=== PATIENT | female | born 1980 | race Caucasian/White ===

== ENCOUNTER 2018-02-18 20:13 | Emergency (ER) | payer OTHER ==
[2018-02-18] MEDS: ONDANSETRON 4MG/2ML VIAL (J2405) IV (20:45)
[2018-02-18] MEDS: KETOROLAC 30 MG/ML VIAL (J1885) IV (20:45)
[2018-02-18] MEDS: NS 1,000 ML IV (20:45)
[2018-02-18 20:58] LABS: BASO % 0.5 % (0.0-1.0); EOS # 0.2 10^3/uL (0.0-0.50); EOS % 2.8 % (0.0-3.0); HEMATOCRIT 34.8 % (36.0-47.0); HEMOGLOBIN 11.9 g/dl (12.0-15.5); IMMATURE GRANULOCYTE % 0.3 % (0-3.0); LYMPH # 2.1 10^3/uL (1.5-4.5); LYMPH % 32.1 % (24.0-44.0); MEAN CORPUSCULAR HEMOGLOBIN 28.4 pg (27.0-33.0); MEAN CORPUSCULAR HGB CONC 34.2 g/dl (32.0-36.5); MEAN CORPUSCULAR VOLUME 83.1 fl (80.0-96.0); MONO # 0.4 10^3/uL (0.0-0.8); MONO % 5.6 % (0.0-5.0); NEUTROPHILS # 3.8 10^3/uL (1.8-7.7); NEUTROPHILS % 58.7 % (36.0-66.0); PLATELET COUNT, AUTOMATED 283 10^3/uL (150-450); RED BLOOD COUNT 4.19 10^6/uL (4.00-5.40); RED CELL DISTRIBUTION WIDTH 13.2 % (11.5-14.5); WHITE BLOOD COUNT 6.4 10^3/uL (4.0-10.0)
[2018-02-18] MEDS: fentaNYL 100 MCG/2 ML INJECTION (J3010) IV ×2 (21:04→22:48)
[2018-02-18 21:22] LABS: ALBUMIN/GLOBULIN RATIO 1.25 (1.00-1.93); ALKALINE PHOSPHATASE 100 U/L (45-117); ALT/SGPT 28 U/L (12-78); AMYLASE 54 U/L (25-115); ANION GAP 9 MEQ/L (8-16); AST/SGOT 15 U/L (7-37); BILIRUBIN,DIRECT 0.2 MG/DL (0.0-0.2); BILIRUBIN,TOTAL 0.9 MG/DL (0.2-1.0); BLOOD UREA NITROGEN 15 MG/DL (7-18); CALCIUM LEVEL 9.3 MG/DL (8.5-10.1); CARBON DIOXIDE LEVEL 27 MEQ/L (21-32); CHLORIDE LEVEL 106 MEQ/L (98-107); CREATININE FOR GFR 1.03 MG/DL (0.55-1.30); GLOMERULAR FILTRATION RATE > 60.0 (>60); GLUCOSE, FASTING 103 MG/DL (70-100); LIPASE 100 U/L (73-393); POTASSIUM SERUM 3.7 MEQ/L (3.5-5.1); SODIUM LEVEL 142 MEQ/L (136-145); TOTAL PROTEIN 7.2 GM/DL (6.4-8.2)
[2018-02-18] MEDS: diphenhydrAMINE INJ 50MG/ML VIAL (J1200) IV (22:47)
[2018-02-18 23:03] LABS: KETONE, URINE AUTO RFX NEGATIVE (NEGATIVE); LEUKOCYTE ESTERASE UR AUTO RFX NEGATIVE (NEGATIVE); NITRITE, URINE AUTO RFX NEGATIVE (NEGATIVE); RBC, URINE AUTO RFX 2 /HPF (0-3); SQUAM EPITHELIAL CELL UR AURFX 2 /HPF (0-6); WBC, URINE AUTO RFX 0 /HPF (0-3)
== END 2018-02-19 01:19 | disposition home or self-care (01) ==
LOC: M ED 02-19 01:19
DX: R10.9 Unspecified abdominal pain (principal); R11.0 Nausea
CPT/HCPCS: J1200

== ENCOUNTER 2018-06-19 14:23 | Emergency (ER) | payer OTHER ==
[2018-06-19] MEDS: METHOCARBAMOL 500 MG TAB PO (15:38)
[2018-06-19] MEDS: IBUPROFEN 800 MG TAB PO (15:38)
== END 2018-06-19 15:58 | disposition home or self-care (01) ==
LOC: M ED 14:23
DX: S29.012A Strain of muscle and tendon of back wall of thorax, initial encounter (principal); X50.0XXA Overexertion from strenuous movement or load, initial encounter; Y92.89 Other specified places as the place of occurrence of the external cause; Y99.0 Civilian activity done for income or pay; E07.9 Disorder of thyroid, unspecified; Z79.899 Other long term (current) drug therapy
CPT/HCPCS: 99282

== ENCOUNTER 2018-08-31 13:44 | Inpatient (IN) | payer OTHER ==
[~2018-08-31] VITALS: Ht 152.4 cm; Wt 81.4 kg
[~2018-08-31 13:44] MED LIST: BACL10TA2 PO; HYZA50TA2 PO; IBUP80TA PO; LEVO25TA5 PO; NORCOTAB PO; ROBA500T PO
[2018-08-31] MEDS ORDERED: LOSA25TA14 PO (13:50)
[2018-08-31 14:25] LABS: BASO # 0.1 10^3/uL (0.0-0.2); BASO % 1.1 % (0.0-1.0); EOS # 0.1 10^3/uL (0.0-0.50); EOS % 2.5 % (0.0-3.0); HEMATOCRIT 38.5 % (36.0-47.0); HEMOGLOBIN 13.1 g/dl (12.0-15.5); LYMPH # 1.7 10^3/uL (1.5-4.5); LYMPH % 36.8 % (24.0-44.0); MEAN CORPUSCULAR HEMOGLOBIN 28.1 pg (27.0-33.0); MEAN CORPUSCULAR VOLUME 82.4 fl (80.0-96.0); MONO # 0.3 10^3/uL (0.0-0.8); MONO % 6.5 % (0.0-5.0); NEUTROPHILS # 2.4 10^3/uL (1.8-7.7); NEUTROPHILS % 52.9 % (36.0-66.0); PLATELET COUNT, AUTOMATED 281 10^3/uL (150-450); RED BLOOD COUNT 4.67 10^6/uL (4.00-5.40); WHITE BLOOD COUNT 4.5 10^3/uL (4.0-10.0)
[2018-08-31] MEDS ORDERED: KETOROLAC 30 MG/ML VIAL (J1885) IV ONE (14:30)
[2018-08-31 14:53] LABS: HCG, SERUM QUALITATIVE NEGATIVE (NEGATIVE)
[2018-08-31 14:57] LABS: ALBUMIN 4.3 GM/DL (3.2-5.2); ALT/SGPT 22 U/L (12-78); BILIRUBIN,DIRECT 0.2 MG/DL (0.0-0.2); BILIRUBIN,TOTAL 0.7 MG/DL (0.2-1.0); BLOOD UREA NITROGEN 17 MG/DL (7-18); CALCIUM LEVEL 9.3 MG/DL (8.5-10.1); CARBON DIOXIDE LEVEL 28 MEQ/L (21-32); CHLORIDE LEVEL 105 MEQ/L (98-107); CREATININE FOR GFR 0.98 MG/DL (0.55-1.30); GLOMERULAR FILTRATION RATE > 60.0 (>60); GLUCOSE, FASTING 96 MG/DL (70-100); LIPASE 108 U/L (73-393); POTASSIUM SERUM 3.7 MEQ/L (3.5-5.1); SODIUM LEVEL 138 MEQ/L (136-145); TOTAL PROTEIN 7.6 GM/DL (6.4-8.2)
[2018-08-31] MEDS ORDERED: diphenhydrAMINE INJ 50MG/ML VIAL (J1200) IV ONE (15:15)
[2018-08-31] MEDS ORDERED: MORPHINE 4 MG/ML 1ML VIAL/SYRINGE (J2270) IV ONE ×2 (15:15→21:15)
--- NOTE | 2018-08-31 15:18 | REP ---
RIGHT UPPER QUADRANT SONOGRAPHY: HISTORY: Upper abdomen pain. Cholecystitis versus stones. Comparison CT study February 18, 2018. SONOGRAPHIC FINDINGS: The gallbladder is poorly seen in this patient. It appears to be partially contracted and is partially obscured by bowel gas. No definite stone is seen but it is incompletely visualized. The common bile duct is normal measuring 0.5 cm. Limited views of the pancreas show no abnormality. No focal liver lesion is seen. There is a 1.6 x 1.3 x 1.0 cm cyst in the right kidney. Right renal dimensions are 12.2 x 5.6 x 5.2 cm. No hydronephrosis. IMPRESSION: Partially obscured gallbladder. No definite stone but poorly and incompletely visualized. Normal CBD. Small cyst right kidney. Electronically Signed by Pete Maurice MD 08/31/2018 03:28 P
[2018-08-31] MEDS ORDERED: ONDANSETRON 4MG/2ML VIAL (J2405) IV ONE (15:30)
[2018-08-31] MEDS ORDERED: ISOVUE-370 76% 100ML VIAL (Q9967) As Ordered ONE (15:32)
--- NOTE | 2018-08-31 16:09 | REP ---
CT pulmonary angiogram: With IV contrast. History: Epigastric pain. Elevated blood pressure. Comparison studies: No comparison study. Contrast dose: 100 ml's of Isovue [address] technique: Helical scanning is acquired and overlapping 1.5 mm and contiguous 3 mm axial images are reformatted. In addition, maximum intensity projection and multiplanar re-formation images are generated in sagittal and coronal imaging projections. CT pulmonary angiographic findings: There is good opacification of the pulmonary arterial tree. There is no CT evidence of pulmonary embolism. Thoracic aorta enhances homogeneously and is normal in course and caliber. There is no evidence of dissection or aneurysm. Maximal intensity projection images show no filling defect or vessel cutoff. There are granulomatous calcifications in the left lower lobe. No pulmonary nodule or infiltrate is seen. No hilar or mediastinal mass or adenopathy is seen. No pleural or pericardial effusion is seen. No adrenal lesion is observed. There are accessory splenules in the left upper quadrant. No bony destructive lesion is seen. Impression: No CT evidence of pulmonary embolus. Old granulomatous calcifications left lower lobe. Otherwise negative. Electronically Signed by Pete Maurice MD 08/31/2018 04:00 P
[2018-08-31] MEDS ORDERED: PANTOPRAZOLE 40MG INJ (PROTONIX) (C9113) IV ONE (16:15)
--- NOTE | 2018-08-31 16:28 | REP ---
CT abdomen and pelvis with IV contrast: History: Upper abdominal pain and nausea. Comparison study February 18, 2018. CT contrast dose: 100 ml of intravenous Isovue [address] findings: The lung bases are clear. Bowel gas pattern is unremarkable on digital trading analyst view. Bilateral tubal ligation clamps are seen. The liver and the spleen are normal in size homogeneous in texture. There are two accessory splenules. No adrenal lesion is seen. Pancreas is unremarkable. No abnormality is noted in the gallbladder. Kidneys enhance symmetrically and are morphologically intact. No uterine, ovarian or adnexal abnormality. Urinary bladder is intact. No abdominal wall defect is seen. Bone window settings show no bony destructive lesion. The appendix is surgically absent. Impression: Status post appendectomy and tubal ligation. No acute abdominal or pelvic abnormality. Electronically Signed by Pete Maurice MD 08/31/2018 06:14 P
[2018-08-31 16:41] LABS: CPK CREATINE PHOSPHOKINASE 155 U/L (26-192); MB/CK RELATIVE INDEX 0.97 (< OR =4); TROPONIN I < 0.02 NG/ML (< 0.10)
[2018-08-31] MEDS ORDERED: GI COCKTAIL 50ML BTL(HYOSCYAMINE/MAALOX/LIDOCAINE VISCOUS)(1:3:1) PO ONE (16:45)
[2018-08-31] MEDS ORDERED: SUCRALFATE SUSP 1GM/10ML UD PO ONE (17:00)
[2018-08-31] MEDS ORDERED: SYNT75TA PO (18:19)
[2018-08-31] MEDS: NS 1,000 ML IV SCH ×2 (18:45→20:50)
--- NOTE | 2018-08-31 19:05 | ECGEPIP ---
Stationary ECG Study 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
--- NOTE | 2018-08-31 19:31 | HPE ---
DATE OF ADMISSION: 08/31/2018 38-year-old female with past medical history of hypothyroidism, hypertension, who presents to the emergency room with epigastric abdominal pain which has been going on for a couple of days now, it exacerbates every time she eats. She has never had similar symptoms in the past. She has had some nausea, but no vomiting, no diarrhea. No subjective feeling of fever, aches, or chills. She does not smoke or drink or eat spicy foods and has no family history of gastric ulcers. In the emergency room (ER), she was given IV Protonix, ketorolac, morphine, and Zofran to only a mild degree of improvement. Dr. Shafer was called by the ER staff and is willing to see the patient in the morning for possible EGD. Patient thus will be admitted for further management. Again, past medical history of hypothyroidism, hypertension. ALLERGIES: She has no known drug allergies. FAMILY HISTORY: Negative for gastric ulcers. SOCIAL HISTORY: Patient denies tobacco, alcohol, or illicit drugs. MEDICATIONS: She takes at home are as follows: - Hyzaar 50/12.5 one tablet orally daily - Synthroid 37.5 mg orally daily Review of systems is negative for all ten major systems except what is mentioned in history of present illness (HPI). Vital signs: Blood pressure is 141/100, heart rate is 104, regular, respiratory rate is 20, temperature 97, oxygen saturation 99% on room air. Head is atraumatic, normocephalic. Neck is supple, no jugular venous distention (JVD). Lungs are clear to auscultation. S1, S2 audible, no murmurs appreciated. Abdomen is soft, positive bowel sounds. No pedal edema. Skin intact. Neurologic examination: Patient is awake, alert, oriented times three. LABORATORY DATA: WBC 4.5, hemoglobin 13.1, hematocrit 38.5, platelets are 281,000, sodium 138, potassium 3.7, chloride 105, CO2 28, BUN 17, creatinine 0.98, glucose 96, troponin is less than 0.02, lipase 108. CT angio showed no evidence of pulmonary embolus (PE) and CT of the abdomen and pelvis showed status post appendectomy and tubal ligation, no acute abdominal or pelvic abnormalities. IMPRESSION: 1. Abdominal pain not otherwise specified. PLAN: Patient will be admitted to the medical/surgical floor. Will continue patient on her preadmission medications. I am going to start her on IV Protonix 40 IV every 12 hours. Will keep her nothing by mouth, give her IV fluids normal saline (NS) at 125 mL/hour, and Dr. Shafer has been officially put on gastrointestinal (GI) consultation and we will be looking forward to his recommendations. Patient likely has peptic ulcer disease and will need an EGD to prove that.
[2018-08-31 20:40] VITALS: BP 141/90
[2018-08-31] MEDS: ONDANSETRON 4MG/2ML VIAL (J2405) IV PRN (21:30)
[2018-08-31 21:42] VITALS: BP 136/77
[2018-08-31] MEDS: diphenhydrAMINE INJ 50MG/ML VIAL (J1200) IV PRN (22:40)
[2018-09-01] VITALS (8 sets, daily range): BP systolic 113–145; BP diastolic 63–86
[2018-09-01] MEDS: PANTOPRAZOLE 40MG INJ (PROTONIX) (C9113) IV SCH ×2 (03:41→17:08)
[2018-09-01] MEDS: MORPHINE 4 MG/ML 1ML VIAL/SYRINGE (J2270) IV PRN ×2 (03:42→08:03)
[2018-09-01] MEDS: LEVOTHYROXINE 37.5MCG PER 1/2TAB (0.0375MG) PO SCH (05:23)
[2018-09-01] MEDS: ONDANSETRON 4MG/2ML VIAL (J2405) IV PRN ×2 (05:23→17:08)
[2018-09-01 07:07] LABS: BASO % 0.8 % (0.0-1.0); EOS # 0.1 10^3/uL (0.0-0.50); EOS % 2.5 % (0.0-3.0); HEMATOCRIT 33.9 % (36.0-47.0); LYMPH # 1.5 10^3/uL (1.5-4.5); LYMPH % 41.5 % (24.0-44.0); MEAN CORPUSCULAR HEMOGLOBIN 27.7 pg (27.0-33.0); MEAN CORPUSCULAR HGB CONC 32.4 g/dl (32.0-36.5); MEAN CORPUSCULAR VOLUME 85.4 fl (80.0-96.0); MONO # 0.3 10^3/uL (0.0-0.8); MONO % 7.3 % (0.0-5.0); NEUTROPHILS # 1.7 10^3/uL (1.8-7.7); NEUTROPHILS % 47.6 % (36.0-66.0); PLATELET COUNT, AUTOMATED 215 10^3/uL (150-450); RED BLOOD COUNT 3.97 10^6/uL (4.00-5.40); WHITE BLOOD COUNT 3.6 10^3/uL (4.0-10.0)
[2018-09-01 07:26] LABS: BLOOD UREA NITROGEN 13 MG/DL (7-18); CALCIUM LEVEL 7.7 MG/DL (8.5-10.1); CARBON DIOXIDE LEVEL 25 MEQ/L (21-32); CHLORIDE LEVEL 110 MEQ/L (98-107); CREATININE FOR GFR 0.92 MG/DL (0.55-1.30); GLOMERULAR FILTRATION RATE > 60.0 (>60); GLUCOSE, FASTING 78 MG/DL (70-100); POTASSIUM SERUM 3.9 MEQ/L (3.5-5.1); SODIUM LEVEL 142 MEQ/L (136-145)
[2018-09-01] MEDS ORDERED: CALCIUM GLUCONATE 1,000 MG in D5W MINI-BAG PLUS 100 ML IV ONE (08:00)
[2018-09-01] MEDS: hydroCHLOROthiazide 12.5 MG CAPSULE PO SCH (08:17)
[2018-09-01] MEDS: LOSARTAN 50 MG TAB PO SCH (08:17)
[2018-09-01] MEDS: ENOXAPARIN 40 MG/0.4 ML SYRINGE (J1650) SC SCH (10:07)
[2018-09-01] MEDS: NS 1,000 ML IV SCH ×2 (10:07→17:09)
[2018-09-01] MEDS: ACETAMINOPHEN TAB 650MG DOSE (2X325MG) PO PRN ×2 (10:07→17:09)
[2018-09-01] MEDS ORDERED: LIDOCAINE 2% INJ 100 MG/5 ML SDV (FOR ANES.) As Ordered ONE (12:02)
[2018-09-01] MEDS ORDERED: fentaNYL 100 MCG/2 ML INJECTION (J3010) As Ordered ONE (12:02)
[2018-09-01] MEDS ORDERED: PROPOFOL 200 MG/20 ML VIAL As Ordered ONE (12:02)
--- NOTE | 2018-09-01 12:43 | ROOR ---
Patient Name: Ayesha Benavides Procedure Date: 09/01/2018 12:22 PM Date of : 1980 Age: 38 Room: [facility] Gender: Female Note Status: Finalized Procedure: Upper GI endoscopy Indications: Epigastric abdominal pain Providers: Austyn SHAFER MD Referring MD: ANTHONY CRUZ MD Requesting Provider: Medicines: Monitored Anesthesia Care Complications: No immediate complications. Procedure: Pre-Anesthesia Assessment: - The heart rate, respiratory rate, oxygen saturations, blood pressure, adequacy of pulmonary ventilation, and response to care were monitored throughout the procedure. The Endoscope was introduced through the mouth, and advanced to the third part of duodenum. The upper GI endoscopy was accomplished without difficulty. The patient tolerated the procedure well. Findings: The esophagus was normal. The stomach was normal. (Large liquid volume, with some meds/food debris- sometimes seen in inadequate fast or gastroparesis) The examined duodenum was normal. Impression: - Normal esophagus. - Normal stomach. - Normal examined duodenum. - No specimens collected. Recommendation: - Perform a HIDA (hepatobiliary iminodiacetic acid) scan today. - Do a gastric emptying study if symptoms persist. Austyn Shafer MD Austyn SHAFER MD 09/01/2018 12:43:28 PM This report has been signed electronically. Number of Addenda: 0 Note Initiated On: 09/01/2018 12:22 PM Estimated Blood Loss: Estimated blood loss: none.
--- NOTE | 2018-09-01 16:20 | IPNPDOC ---
Date Seen The patient was seen on 09/01/18. Progress Note SUBJECTIVE: Patient is a 38-year-old female with epigastric pain. Patient is evaluated at bedside this morning. She reports a sharp, centralized epigastric pain that radiates substernally that is worse in the supine position and appears to improve when she sits up. She has a bad taste in the back of her mouth. Further admits to occasional loose stools that are non-bloody that may worsen if she eats pasta. Has had an appendectomy. Does have her gallbladder, is close to 40 years old, and has three children. BMI is 35. Admits to nausea and vomiting that has subsided since admission. Last meal was lunch the day prior. Denies fever, night sweats, chills. OBJECTIVE PHYSICAL EXAMINATION: VITAL SIGNS: Please see below. GENERAL: Well nourished, well developed female, alert and conversant, answers questions appropriately, appropriately dressed in hospital attire, no acute distress, although she appears uncomfortable. HEENT: Atraumatic, normocephalic, PERRL, EOMI, oral mucosa appears pink and moist, nasal septum appears midline, nares are patent. CARDIOVASCULAR: Regular rate and rhythm, normal S1 and S2, no murmur, rub, click. RESPIRATORY: Clear to auscultation bilaterally, adequate inspiratory and expiratory airway excursion, symmetric airway entry, no focal consolidations, no wheeze, rhonchi, crackles. ABDOMINAL: Guarding in mid-epigastric region, no rebound, bowel sounds diminished throughout, soft, non-painful to palpation, no organomegaly. EXTREMITIES: Warm, dry, no clubbing, no cyanosis, no peripheral edema. NEUROLOGICAL: No focal neurological deficits. PSYCHOLOGICAL: Mood and affect appropriate. LABORATORY DATA, IMAGING STUDIES, MICROBIOLOGY: Please see below. Limited abdominal ultrasound on 08/31/2018 - Partially obscured gallbladder. No definite stone but poorly and incompletely visualized. Normal CBD. Small cyst right kidney. CT abdomen and pelvis with IV contrast only on 08/31/2018 - Status post appendectomy and tubal ligation. No acute abdominal or pelvic abnormality. CT chest angiogram on 08/31/2018 - No CT evidence of pulmonary embolus. Old granulomatous calcifications left lower lobe. Otherwise negative. DVT prophylaxis ordered?: Lovenox 40mg subcutaneously daily; TEDs, sequential, knee-high compression. ASSESSMENT AND PLAN: This is a 38-year-old female with epigastric pain, nausea, vomiting possibly related to gallbladder dysfunction versus GERD. PROBLEMS: 1. Epigastric pain with nausea and vomiting: Differential includes GERD, dysfunctional gallbladder, cholelithiasis, PUD, cholecystitis, pancreatitis, celiac disease. No leukocytosis, afebrile, not hypotensive. Lipase within normal limits. TTG and endomysial IgA ordered. Gastroenterology consulted. HIDA scan and upper endoscopy recommended. Unrevealing upper endoscopy. NPO for HIDA scan. May resume diet per gastroenterology recommendations. Continue with Protonix IV. Received Carafate and GI cocktail in the Emergency Depa rtment. Morphine on hold for HIDA scan. Continue with Tylenol for pain as needed LFTs are negative. Negative beta-hCG. Could consider gastric emptying study. 2. Hypertension: Continue HCTZ and Cozaar. 3. Hypothyroidism: Continue Levothyroxine. Ordered TSH level. DISPOSITION: HIDA scan. VS, I&O, 24H, Fishbone Vital Signs/I&O Vital Signs Date Time Temp Pulse Resp B/P (MAP) Pulse Ox O2 Delivery O2 Flow Rate FiO2 09/01/18 14:00 99.1 86 18 116/70 (85) 98 Room Air I&O- Last 24 Hours up to 6 AM 09/01/18 06:00 Intake Total 2125 ml Balance 2125 ml Laboratory Data 24H LABS Laboratory Tests 2 09/01/18 06:44: Immature Granulocyte % (Auto) 0.3, White Blood Count 3.6L, Red Blood Count 3.97L, Hemoglobin 11.0#L, Hematocrit 33.9L, Mean Corpuscular Volume 85.4, Mean Corpuscular Hemoglobin 27.7, Mean Corpuscular Hemoglobin Concent 32.4, Red Cell Distribution Width 13.2, Platelet Count 215, Neutrophils (%) (Auto) 47.6, Lymphocytes (%) (Auto) 41.5, Monocytes (%) (Auto) 7.3H, Eosinophils (%) (Auto) 2.5, Basophils (%) (Auto) 0.8, Neutrophils # (Auto) 1.7L, Lymphocytes # (Auto) 1.5, Monocytes # (Auto) 0.3, Eosinophils # (Auto) 0.1, Basophils # (Auto) 0.0, Nucleated Red Blood Cells % (auto) 0.0, Anion Gap 7L, Glomerular Filtration Rate > 60.0, Blood Urea Nitrogen 13, Creatinine 0.92, Sodium Level 142, Potassium Level 3.9, Chloride Level 110H, Carbon Dioxide Level 25, Calcium Level 7.7#L 09/01/18 08:44: CBC/BMP Laboratory Tests 09/01/18 06:44 Red Blood Count 3.97 L, Mean Corpuscular Volume 85.4, Mean Corpuscular Hemoglobin 27.7, Mean Corpuscular Hemoglobin Concent 32.4, Red Cell Distribution Width 13.2, Neutrophils (%) (Auto) 47.6, Lymphocytes (%) (Auto) 41.5, Monocytes (%) (Auto) 7.3 H, Eosinophils (%) (Auto) 2.5, Basophils (%) (Auto) 0.8, Neutrophils # (Auto) 1.7 L, Lymphocytes # (Auto) 1.5, Monocytes # (Auto) 0.3, Eosinophils # (Auto) 0.1, Basophils # (Auto) 0.0, Calcium Level 7.7 #L JELANI BLANCO DO Sep 01, 2018 16:20
[2018-09-01] MEDS ORDERED: KETOROLAC 30 MG/ML VIAL (J1885) IV ONE (17:30)
--- NOTE | 2018-09-01 17:44 | REP ---
HIDA SCAN WITH GALLBLADDER EJECTION FRACTION: Following the intravenous administration of 6.1 mCi of technetium 99m mebrofenin, multiple images of the right upper quadrant are performed for one hour. The gallbladder is visualized at 15 minutes post injection with no evidence of cholecystitis. There is no biliary to bowel transit at one hour. At this point, 8 ounces of Ensure Enlive was ingested and further imaging performed for an initial hour. There is biliary to bowel transit immediately following the ingestion of Ensure. Gallbladder ejection fraction is calculated to be 5%, which is significantly below normal. IMPRESSION: No evidence of cholecystitis. Low gallbladder ejection fraction of 5%, below normal value of 35% or greater. Electronically Signed by Fuad You MD 09/01/2018 07:28 P
[2018-09-01 18:19] LABS: FREE T4 0.97 NG/DL (0.76-1.46)
[2018-09-01] MEDS ORDERED: ONDANSETRON 4MG/2ML VIAL (J2405) IV ONE (21:30)
[2018-09-02] MEDS: NS 1,000 ML IV SCH ×3 (01:21→18:06)
[2018-09-02] MEDS: PANTOPRAZOLE 40MG INJ (PROTONIX) (C9113) IV SCH ×2 (03:44→16:45)
[2018-09-02 03:46] VITALS: BP 129/69
[2018-09-02] MEDS: LEVOTHYROXINE 37.5MCG PER 1/2TAB (0.0375MG) PO SCH (06:06)
[2018-09-02] MEDS ORDERED: KETOROLAC 30 MG/ML VIAL (J1885) IV ONE (06:15)
[2018-09-02 06:43] LABS: HEMATOCRIT 34.6 % (36.0-47.0); HEMOGLOBIN 11.4 g/dl (12.0-15.5); MEAN CORPUSCULAR HEMOGLOBIN 27.9 pg (27.0-33.0); MEAN CORPUSCULAR HGB CONC 32.9 g/dl (32.0-36.5); MEAN CORPUSCULAR VOLUME 84.6 fl (80.0-96.0); PLATELET COUNT, AUTOMATED 223 10^3/uL (150-450); RED BLOOD COUNT 4.09 10^6/uL (4.00-5.40); WHITE BLOOD COUNT 5.1 10^3/uL (4.0-10.0)
[2018-09-02 06:52] LABS: BLOOD UREA NITROGEN 11 MG/DL (7-18); CALCIUM LEVEL 8.2 MG/DL (8.5-10.1); CARBON DIOXIDE LEVEL 25 MEQ/L (21-32); CHLORIDE LEVEL 109 MEQ/L (98-107); GLOMERULAR FILTRATION RATE > 60.0 (>60); GLUCOSE, FASTING 82 MG/DL (70-100); POTASSIUM SERUM 3.7 MEQ/L (3.5-5.1); SODIUM LEVEL 140 MEQ/L (136-145)
[2018-09-02 07:58] LABS: INR 0.98; PROTHROMBIN TIME 13.1 SECONDS (12.1-14.4)
[2018-09-02 08:00] VITALS: BP 141/85
[2018-09-02] MEDS: hydroCHLOROthiazide 12.5 MG CAPSULE PO SCH (08:05)
[2018-09-02] MEDS: ENOXAPARIN 40 MG/0.4 ML SYRINGE (J1650) SC SCH (08:06)
[2018-09-02] MEDS: ACETAMINOPHEN TAB 650MG DOSE (2X325MG) PO PRN (08:06)
[2018-09-02] MEDS: LOSARTAN 50 MG TAB PO SCH (08:06)
[2018-09-02 08:11] LABS: ALBUMIN 3.4 GM/DL (3.2-5.2); BILIRUBIN,DIRECT 0.2 MG/DL (0.0-0.2)
[2018-09-02] MEDS ORDERED: FIORICET TAB PO ONE (08:45)
[2018-09-02] MEDS: ONDANSETRON 4MG/2ML VIAL (J2405) IV PRN (09:54)
[2018-09-02] MEDS: MORPHINE 4 MG/ML 1ML VIAL/SYRINGE (J2270) IV PRN ×2 (10:14→23:44)
[2018-09-02] MEDS: diphenhydrAMINE INJ 50MG/ML VIAL (J1200) IV PRN ×2 (10:17→23:44)
[2018-09-02 12:00] VITALS: BP 134/74
[2018-09-02] MEDS: FIORICET TAB PO PRN (15:10)
--- NOTE | 2018-09-02 15:27 | REP ---
CT Head without contrast HISTORY: Headaches COMPARISON: None There is no intraparenchymal hemorrhage, acute infarct, mass or midline shift. The ventricular system is normal in appearance. There is no extra cerebral collection. There is no fracture. 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 Mucosal thickening is present in the right sphenoid sinus. IMPRESSION: There is no intracranial lesion. Electronically Signed by Roger Holden MD 09/02/2018 03:19 P
[2018-09-02 16:00] VITALS: BP 109/75
--- NOTE | 2018-09-02 17:44 | IPNPDOC ---
Date Seen The patient was seen on 09/02/18. Progress Note SUBJECTIVE: Patient is a 38-year-old female with epigastric pain. Patient is evaluated at bedside this morning. Patient reports improvement in her abdominal pain; however, she has remained nothing by mouth so is unable to assess her current pain. Advanced diet with patient experiencing significant epigastric pain and nausea. Patient admits to a bi-frontal headache without visual or gustatory hallucinations. Denies neck pain. Denies eye pain. Reports that she thinks her headache is not from eating or drinking. Denies fever, night sweats, chills, chest pain. OBJECTIVE PHYSICAL EXAMINATION: VITAL SIGNS: Please see below. GENERAL: Well nourished, well developed female, alert and conversant, answers questions appropriately, appropriately dressed in hospital attire, no acute distress, although she appears uncomfortable. HEENT: Atraumatic, normocephalic, PERRL, EOMI, oral mucosa appears pink and moist, nasal septum appears midline, nares are patent. CARDIOVASCULAR: Regular rate and rhythm, normal S1 and S2, no murmur, rub, click. RESPIRATORY: Clear to auscultation bilaterally, adequate inspiratory and expiratory airway excursion, symmetric airway entry, no focal consolidations, no wheeze, rhonchi, crackles. ABDOMINAL: Soft, round, no rebound, bowel sounds diminished throughout, non- painful to palpation, no organomegaly. EXTREMITIES: Warm, dry, no clubbing, no cyanosis, no peripheral edema. NEUROLOGICAL: No focal neurological deficits, facial sensation intact, bilateral upper muscle strength 5/5 on the right and 5-/5 on the left. PSYCHOLOGICAL: Mood and affect appropriate. LABORATORY DATA, IMAGING STUDIES, MICROBIOLOGY: Please see below. Limited abdominal ultrasound on 08/31/2018 - Partially obscured gallbladder. No definite stone but poorly and incompletely visualized. Normal CBD. Small cyst right kidney. CT abdomen and pelvis with IV contrast only on 08/31/2018 - Status post appendectomy and tubal ligation. No acute abdominal or pelvic abnormality. CT chest angiogram on 08/31/2018 - No CT evidence of pulmonary embolus. Old gra nulomatous calcifications left lower lobe. Otherwise negative. HIDA scan with gallbladder ejection fraction on 09/01/2018 - No cholecystitis, ejection fraction 5%. CT head without contrast on 09/02/2018 - No intracranial lesion. DVT prophylaxis ordered?: TEDs, sequential, knee-high compression, and ambulation. ASSESSMENT AND PLAN: This is a 38-year-old female with epigastric pain, nausea, vomiting found to have gallbladder dysfunction. PROBLEMS: 1. Epigastric pain with nausea and vomiting: Likely secondary to gallbladder dysfunction. Reports previous and worsening "attacks" over the last 6 months. No leukocytosis, afebrile, not hypotensive. Lipase within normal limits. TTG and endomysial IgA pending. Gastroenterology consulted. Upper endoscopy unrevealing. HIDA scan reveals 5% gallbladder ejection fraction. Attempted to advance diet, but was unsuccessful due to worsening symptoms. Currently, nothing by mouth. Intravenous fluid resuscitation with normal saline at 125 mLs/hr. General surgery consulted. Continue with Protonix IV. Continue with Morphine for pain as needed. Continue with Tylenol for pain as needed. LFTs are negative. Negative beta-hCG. Coagulation studies ordered and are negative. Lovenox has been discontinued pending general surgery's recommendations. Patient has been encouraged to ambulate to prevent DVT. Could consider gastric emptying study. 2. Recurrent headaches: Intermittently controlled with Tylenol. Received 2x one-time doses of Toradol. However, depending on general surgery's recommendations, will hold agents that can increase bleeding risk. Patient found relief with Fioricet. Will add Fioricet 1 tablet by mouth every 6 hours as needed for headache. Obtained CT head due to recurrent headaches. It was unrevealing. 3. Hypertension: Continue HCTZ and Cozaar. 4. Hypothyroidism: Continue Levothyroxine. TSH level elevated, but FT4 within normal limits. Likely stress-induced. DISPOSITION: General surgery consultation. Nothing by mouth. VS, I&O, 24H, Fishbone Vital Signs/I&O Vital Signs Date Time Temp Pulse Resp B/P (MAP) Pulse Ox O2 Delivery O2 Flow Rate FiO2 09/02/18 16:00 98.9 82 18 109/75 (86) 99 Room Air I&O- Last 24 Hours up to 6 AM 09/02/18 06:00 Intake Total 1945 ml Output Total 1400 ml Balance 545 ml Laboratory Data 24H LABS Laboratory Tests 2 09/02/18 05:38: Nucleated Red Blood Cells % (auto) 0.0, Anion Gap 6L, Glomerular Filtration Rate > 60.0, Blood Urea Nitrogen 11, Creatinine 0.90, Sodium Level 140, Potassium Level 3.7, Chloride Level 109H, Carbon Dioxide Level 25, Calcium Level 8.2L 09/02/18 07:25: Prothrombin Time 13.1, Prothromb Time International Ratio 0.98, Aspartate Amino Transf (AST/SGOT) 13, Alanine Aminotransferase (ALT/SGPT) 19, Alkaline Phosphatase 68, Total Bilirubin 1.0, Direct Bilirubin 0.2, Total Protein 6.0#L, Albumin 3.4#, Albumin/Globulin Ratio 1.31 CBC/BMP Laboratory Tests 09/02/18 05:38 Red Blood Count 4.09, Mean Corpuscular Volume 84.6, Mean Corpuscular Hemoglobin 27.9, Mean Corpuscular Hemoglobin Concent 32.9, Red Cell Distribution Width 13.0, Calcium Level 8.2 L JELANI BLANCO DO Sep 02, 2018 17:44
[2018-09-02 20:00] VITALS: BP 126/76
[2018-09-03 00:06] LABS: ENDOMYSIAL ABY IgA Negative (Negative); TISSUE TRANSGLUTAMINASE IgA <2 U/mL (0-3)
[2018-09-03] MEDS: PANTOPRAZOLE 40MG INJ (PROTONIX) (C9113) IV SCH ×2 (03:53→15:21)
[2018-09-03] MEDS: NS 1,000 ML IV SCH ×2 (03:53→09:09)
[2018-09-03 04:00] VITALS: BP 115/60
--- NOTE | 2018-09-03 04:38 | CR ---
DATE OF CONSULTATION: 09/02/2018 REASON FOR CONSULTATION: Low gallbladder ejection fraction on nuclear biliary scan. HISTORY OF THE PRESENT ILLNESS: The patient is a pleasant 38-year-old woman who presented to the emergency department on August 31, 2018 complaining of severe epigastric abdominal pain. The patient describes that for about the past 6 months or so she has noted episodes of severe pain high in the epigastrium. These usually begin either while she is eating or immediately after a meal. These last about an hour usually. She will sometimes note nausea and vomiting but this is less frequent. She describes more of a stabbing sensation, though on occasion it can be more of a burning feeling or a feeling of intense fullness. She was working at [facility] on the when she had some lunch and noted the onset of pain that was more severe than usual. She presented to the emergency department. She denied any fevers or chills. In the emergency department she underwent evaluation with some laboratory studies which were normal. These included her blood count and her liver function tests and electrolytes. She had a CT angiogram of the chest obtained to rule out a deep vein thrombosis (DVT) and this was normal. She subsequently underwent a gallbladder ultrasound but this study was suboptimal and the gallbladder was not well seen. She was admitted to the hospitalist service for management. Dr. Shafer of gastroenterology was consulted. The patient underwent an esophagogastroduodenoscopy on the which reportedly showed a normal upper endoscopic exam. A nuclear biliary scan was performed also on September 01, 2018. This revealed normal rapid filling of the gallbladder. There was delayed flow of tracer into the small intestine which began only after she was given the oral Ensure to stimulate emptying. Her ejection fraction was estimated at 5% which is significantly below the normal level of 35% or higher. I have been asked to evaluate the patient regarding the possibility that biliary issues are the cause for her pain. ALLERGIES: The patient has no reported drug allergies. MEDICATIONS: The patient's medications at home include: - Synthroid 37.5 mg by mouth daily - Hyzaar 50/12.5 mg 1 tablet daily FAMILY HISTORY: The patient reports that her brother who is somewhat older has had his gallbladder removed. She reports that her father is currently being treated for heart failure. MEDICAL HISTORY: The patient has a history of hypertension and hypothyroidism. During her most recent in 2014 she had severe complications leading to heart, liver and renal problems. She has a history of headaches. PAST SURGICAL HISTORY: The patient has undergone a laparoscopic appendectomy. She has undergone a bilateral tubal ligation as well. REVIEW OF SYSTEMS: The patient denies any history of chest pain or palpitations. She has no history of deep vein thrombosis (DVT) or pulmonary embolus. She has no history of peptic ulcer disease, diarrhea, constipation, jaundice, hepatitis or pancreatitis. She denies any bone or joint problems. She has no dysuria or hematuria. She has had no recent gynecologic issues. SOCIAL HISTORY: The patient is a nonsmoker and denies excessive alcohol intake. PHYSICAL EXAMINATION: GENERAL: Physical exam reveals a pleasant woman lying quietly on the hospital bed. She is perhaps mildly obese. She is alert, oriented and cooperative. HEENT: Sclerae are anicteric. Mucous membranes are moist. The neck is supple without mass or bruit. HEART: Exam shows a regular rate and rhythm. RESPIRATORY: The lungs are clear to auscultation bilaterally. ABDOMEN: Shows the abdomen to be nondistended. She has normal bowel sounds to auscultation. There is no tenderness to percussion. Palpation reveals the abdomen to be soft throughout. There may be some minimal direct tenderness high in the epigastrium along the midline but otherwise the abdomen is nontender. There is no evidence of abdominal hernia. There are no masses palpable. SKIN: Is warm and dry. The extremities are without edema. She has palpable radial and pedal pulses bilaterally. IMPRESSION: 1. Epigastric abdominal pain. 2. Nuclear biliary scan with a markedly low ejection fraction. 3. Hypertension. 4. Hypothyroidism. PLAN: The patient and I discussed at some length the interpretation of her various tests. She has pain in the epigastrium which is episodic and related to meals. There are some characteristics of her pain which could be consistent with a biliary etiology. Chief among these are the episodic nature and the relationship to meals but the duration of the pain is also consistent with biliary colic. It is a little atypical that the pain begins at the time she is eating or immediately after and not somewhat later. I reviewed her various imaging studies personally. Her gallbladder is not well seen on the gallbladder ultrasound and the CT scan done to evaluate for a pulmonary embolus did not extend low enough into the abdomen to assess the gallbladder. I do note that the colon passes anterior to the right lobe of the liver and this probably interferes to some degree with the imaging. Also there seems to be a more distinct division of the right and left lobes of the liver. The gallbladder seems somewhat more posterior than is typical. The nuclear biliary scan does show good filling of the gallbladder, though the passage of contrast into the duodenum is delayed until she takes the Ensure to stimulate gallbladder emptying. We discussed that there are no definite studies that will definitively confirm that her pain is related to her biliary tract. I advised her that I think it is quite possible based on her symptoms and her studies that her gallbladder is responsible for her discomfort. We discussed the option of proceeding with laparoscopic cholecystectomy. I advised her that there is certainly a chance that we would remove her gallbladder and find that her symptoms are not completely alleviated. She certainly had an opportunity to ask questions and these were answered to the best of my ability. After some discussion, we have agreed to proceed with the cholecystectomy. I will try to fit this in in the next 1-2 days into the operating room (OR) schedule. I did advise her that even though I cannot be certain that cholecystectomy will alleviate her symptoms I do think it is most likely that this will be successful.
[2018-09-03] MEDS: LEVOTHYROXINE 37.5MCG PER 1/2TAB (0.0375MG) PO SCH (06:05)
[2018-09-03 07:13] LABS: HEMOGLOBIN 11.2 g/dl (12.0-15.5); MEAN CORPUSCULAR HEMOGLOBIN 27.9 pg (27.0-33.0); MEAN CORPUSCULAR HGB CONC 33.9 g/dl (32.0-36.5); MEAN CORPUSCULAR VOLUME 82.1 fl (80.0-96.0); PLATELET COUNT, AUTOMATED 218 10^3/uL (150-450); RED BLOOD COUNT 4.02 10^6/uL (4.00-5.40); WHITE BLOOD COUNT 3.7 10^3/uL (4.0-10.0)
[2018-09-03 07:39] LABS: BLOOD UREA NITROGEN 7 MG/DL (7-18); CALCIUM LEVEL 8.3 MG/DL (8.5-10.1); CARBON DIOXIDE LEVEL 23 MEQ/L (21-32); CHLORIDE LEVEL 107 MEQ/L (98-107); CREATININE FOR GFR 0.83 MG/DL (0.55-1.30); GLOMERULAR FILTRATION RATE > 60.0 (>60); GLUCOSE, FASTING 75 MG/DL (70-100); POTASSIUM SERUM 3.4 MEQ/L (3.5-5.1); SODIUM LEVEL 140 MEQ/L (136-145)
--- NOTE | 2018-09-03 07:45 | REP ---
Clinical: Left axillary tenderness. Technique: Real time pyle scale and color evaluation using linear high frequency transducer. Findings: Directed ultrasound examination of the left axillary region demonstrates normal underlying subcutaneous tissues with moderate edema. No obvious fluid collection, adenopathy, or mass lesion appreciated. Impression: Mild/moderate edema to the subcutaneous tissues without focal abnormality. Electronically Signed by Michael Munoz MD 09/03/2018 07:36 A
[2018-09-03 08:00] VITALS: BP 132/80
[2018-09-03] MEDS ORDERED: POTASSIUM CHLORIDE 10 MEQ SR TABLET PO ONE (09:00)
[2018-09-03] MEDS: hydroCHLOROthiazide 12.5 MG CAPSULE PO SCH (09:06)
[2018-09-03] MEDS: LOSARTAN 50 MG TAB PO SCH (09:07)
--- NOTE | 2018-09-03 10:37 | IPNPDOC ---
Date Seen The patient was seen on 09/03/18. Progress Note SUBJECTIVE: Patient is a 38-year-old female with epigastric pain. Patient is evaluated at bedside this morning. Patient reports improvement in her abdominal pain, although she has remained nothing by mouth. Her headache is significantly improved. She developed some pain in her left axilla yesterday. Imaging obtained revealed edema, but no definite lymph node enlargement or absce ss. Denies chest pain, shortness of breath, nausea, vomiting, fevers, night sweats, chills. Denies personal history of diabetes, but has a family history of diabetes. Admits to bilateral dorsal foot numbness with occasional numbness on the anterior bilateral shins, especially after work. No definite low back trauma. Prior left-sided ACL repair and right-sided ACL and PCL repair. OBJECTIVE PHYSICAL EXAMINATION: VITAL SIGNS: Please see below. GENERAL: Well nourished, well developed female, alert and conversant, answers questions appropriately, appropriately dressed in hospital attire, no acute distress, although she appears uncomfortable. HEENT: Atraumatic, normocephalic, PERRL, EOMI, oral mucosa appears pink and moist, nasal septum appears midline, nares are patent. CARDIOVASCULAR: Regular rate and rhythm, normal S1 and S2, no murmur, rub, click. RESPIRATORY: Clear to auscultation bilaterally, adequate inspiratory and expiratory airway excursion, symmetric airway entry, no focal consolidations, no wheeze, rhonchi, crackles. ABDOMINAL: Soft, round, no rebound, bowel sounds diminished throughout, non- painful to palpation, no organomegaly. EXTREMITIES: Warm, dry, no clubbing, no cyanosis, no peripheral edema. NEUROLOGICAL: No focal neurological deficits, facial sensation intact, bilateral upper muscle strength 5/5 on the right and 5-/5 on the left. PSYCHOLOGICAL: Mood and affect appropriate. LABORATORY DATA, IMAGING STUDIES, MICROBIOLOGY: Please see below. Limited abdominal ultrasound on 08/31/2018 - Partially obscured gallbladder. No definite stone but poorly and incompletely visualized. Normal CBD. Small cyst right kidney. CT abdomen and pelvis with IV contrast only on 08/31/2018 - Status post appendectomy and tubal ligation. No acute abdominal or pelvic abnormality. CT chest angiogram on 08/31/2018 - No CT evidence of pulmonary embolus. Old g ranulomatous calcifications left lower lobe. Otherwise negative. HIDA scan with gallbladder ejection fraction on 09/01/2018 - No cholecystitis, ejection fraction 5%. CT head without contrast on 09/02/2018 - No intracranial lesion. Left extremity non-vascular ultrasound on 09/02/2018 - Mild/moderate edema to the subcutaneous tissues without focal abnormality. DVT prophylaxis ordered?: TEDs, sequential, knee-high compression, and ambulation. ASSESSMENT AND PLAN: This is a 38-year-old female with epigastric pain, nausea, vomiting found to have gallbladder dysfunction. PROBLEMS: 1. Epigastric pain with nausea and vomiting: Likely secondary to gallbladder dysfunction. Reports previous and worsening "attacks" over the last 6 months. No leukocytosis, afebrile, not hypotensive. Lipase within normal limits. TTG and endomysial IgA negative. Gastroenterology consulted. Upper endoscopy unrevealing. HIDA scan reveals 5% gallbladder ejection fraction. Attempted to advance diet, but was unsuccessful due to worsening symptoms. Currently, clear liquid diet although patient is abstaining from any oral intake. Intravenous fluid resuscitation with normal saline at 125 mLs/hr. General surgery consulted. Cholecystectomy scheduled for tomorrow, 09/04/2018. Continue with Protonix IV, but hold morning of surgery. Continue with Morphine for pain as needed. Continue with Tylenol for pain as needed. LFTs are negative. Negative beta-hCG. Coagulation studies ordered and are negative. Lovenox has been discontinued pending upcoming surgery. Patient has been encouraged to ambulate to prevent DVT. Could consider gastric emptying study. [place] Perioperative Risk is 0.1% for myocardial infarction or cardiac arrest, intraoperatively or up to 30 days post-operatively. Preoperative mortality is 0.6%. 2. Recurrent headaches: Controlled with Fioricet. May continue morning of surgery. 3. Hypertension: Continue HCTZ and Cozaar. Hold morning of surgery. May resume once hemodynamically stable. 4. Hypothyroidism: Continue Levothyroxine. TSH level elevated, but FT4 within normal limits. Likely stress-induced. Continue medication morning of surgery. DISPOSITION: General surgery consultation. Cholecystectomy tomorrow. Clear liquid diet. Optimized for surgery. VS, I&O, 24H, Fishbone Vital Signs/I&O Vital Signs Date Time Temp Pulse Resp B/P (MAP) Pulse Ox O2 Delivery O2 Flow Rate FiO2 09/03/18 09:07 132/80 1/24/19 08:00 97.8 80 18 98 Room Air I&O- Last 24 Hours up to 6 AM 09/03/18 06:00 Intake Total 2345 ml Output Total 2350 ml Balance -5 ml Laboratory Data 24H LABS Laboratory Tests 2 09/03/18 06:48: Nucleated Red Blood Cells % (auto) 0.0, Anion Gap 10, Glomerular Filtration Rate > 60.0, Blood Urea Nitrogen 7, Creatinine 0.83, Sodium Level 140, Potassium Level 3.4L, Chloride Level 107, Carbon Dioxide Level 23, Calcium Level 8.3L CBC/BMP Laboratory Tests 09/03/18 06:48 Red Blood Count 4.02, Mean Corpuscular Volume 82.1, Mean Corpuscular Hemoglobin 27.9, Mean Corpuscular Hemoglobin Concent 33.9, Red Cell Distribution Width 13.3, Calcium Level 8.3 L JELANI BLANCO DO Sep 03, 2018 10:37
[2018-09-03] MEDS: FIORICET TAB PO PRN (15:20)
[2018-09-03 16:00] VITALS: BP 133/78
[2018-09-03 20:00] VITALS: BP 121/68
[2018-09-03] MEDS: MORPHINE 4 MG/ML 1ML VIAL/SYRINGE (J2270) IV PRN (22:35)
[2018-09-03] MEDS: diphenhydrAMINE INJ 50MG/ML VIAL (J1200) IV PRN (22:36)
[2018-09-04 04:00] VITALS: BP 101/55
[2018-09-04] MEDS: PANTOPRAZOLE 40MG INJ (PROTONIX) (C9113) IV SCH (04:05)
[2018-09-04] MEDS: NS 1,000 ML IV SCH ×2 (04:54→21:00)
[2018-09-04] MEDS: LEVOTHYROXINE 37.5MCG PER 1/2TAB (0.0375MG) PO SCH (06:07)
[2018-09-04 08:00] VITALS: BP 115/73
[2018-09-04 08:07] LABS: BLOOD UREA NITROGEN 7 MG/DL (7-18); CALCIUM LEVEL 8.5 MG/DL (8.5-10.1); CARBON DIOXIDE LEVEL 26 MEQ/L (21-32); CHLORIDE LEVEL 107 MEQ/L (98-107); CREATININE FOR GFR 0.86 MG/DL (0.55-1.30); GLOMERULAR FILTRATION RATE > 60.0 (>60); GLUCOSE, FASTING 74 MG/DL (70-100); POTASSIUM SERUM 3.6 MEQ/L (3.5-5.1); SODIUM LEVEL 141 MEQ/L (136-145)
--- NOTE | 2018-09-04 11:20 | IPN ---
DATE: 09/04/2018 The patient was admitted on 08/31/2018 by the hospitalist with postprandial epigastric pain. She underwent evaluation with several tests. A gallbladder ultrasound was suboptimal because of anatomic factors. It showed a low gallbladder ejection fraction and esophagogastroduodenoscopy (EGD) showed no upper gastrointestinal causes for her discomfort. Her history was felt to be suggestive of but not typical of biliary tract disease. We had talked yesterday and she is scheduled for a laparoscopic cholecystectomy on the . VITAL SIGNS: She has been afebrile over the past 24 hours. Her pulse is in the 70s and 80s. Intake and output shows that she has tolerated some clear liquids and remains on a brisk IV rate. Her urine output is excellent. PHYSICAL EXAMINATION: The patient is alert and oriented. Cardiac exam shows a regular rhythm and the lungs are clear. The abdomen is obese but soft. She has no significant tenderness on palpation today. Laboratory studies show white count of 4, hemoglobin 11, hematocrit 33. Her chemistry profile is completely normal with the exception of a minimal change in her potassium to 3.4. IMPRESSION: 1. Biliary dyskinesia versus cholelithiasis, not identified on current testing. PLAN: The patient is scheduled for a laparoscopic cholecystectomy on 09/04/2018. She was counseled for the surgery to include risks and possible benefits. Risks include but not are limited to bleeding, infection, scarring, adverse drug reaction, injury of internal organs, and need for further surgery. She had an opportunity to ask questions. Her spouse was also in the room and was offered the opportunity to ask questions. They seemed satisfied with the discussion. We will plan on proceeding with surgery tomorrow.
[2018-09-04] MEDS: FIORICET TAB PO PRN (14:45)
[2018-09-04 16:00] VITALS: BP 136/76
--- NOTE | 2018-09-04 16:39 | IPNPDOC ---
Date Seen The patient was seen on 09/04/18. Progress Note SUBJECTIVE: Patient is a 38-year-old female with epigastric pain. Patient is evaluated at bedside this morning. Patient denies chest pain, shortness of breath, abdominal pain, nausea, vomiting. She notes that the fluctuance in her left axilla has worsened and then now appears to be a nodule present. There is no drainage. She denies fevers, night sweats, chills. Anticipating cholecystectomy with general surgery later today. OBJECTIVE PHYSICAL EXAMINATION: VITAL SIGNS: Please see below. GENERAL: Well nourished, well developed female, alert and conversant, answers questions appropriately, appropriately dressed in hospital attire, no acute distress, although she appears uncomfortable. HEENT: Atraumatic, normocephalic, PERRL, EOMI, oral mucosa appears pink and moist, nasal septum appears midline, nares are patent. CARDIOVASCULAR: Regular rate and rhythm, normal S1 and S2, no murmur, rub, click. RESPIRATORY: Clear to auscultation bilaterally, adequate inspiratory and expiratory airway excursion, symmetric airway entry, no focal consolidations, no wheeze, rhonchi, crackles. ABDOMINAL: Soft, round, no rebound, bowel sounds diminished throughout, non- painful to palpation, no organomegaly. EXTREMITIES: Warm, dry, no clubbing, no cyanosis, no peripheral edema, somewhat fluctuant area in the left axilla with a small, round, soft ovoid nodule approximately 0.5 x 0.5cm, no drainage. NEUROLOGICAL: No focal neurological deficits. PSYCHOLOGICAL: Mood and affect appropriate. LABORATORY DATA, IMAGING STUDIES, MICROBIOLOGY: Please see below. Limited abdominal ultrasound on 08/31/2018 - Partially obscured gallbladder. No definite stone but poorly and incompletely visualized. Normal CBD. Small cyst right kidney. CT abdomen and pelvis with IV contrast only on 08/31/2018 - Status post appendectomy and tubal ligation. No acute abdominal or pelvic abnormality. CT chest angiogram on 08/31/2018 - No CT evidence of pulmonary embolus. Old granulomatous calcifications left lower lobe. Otherwise negative. HIDA scan with gallbladder ejection fraction on 09/01/2018 - No cholecystitis, ejection fraction 5%. CT head without contrast on 09/02/2018 - No intracranial lesion. Left extremity non-vascular ultrasound on 09/02/2018 - Mild/moderate edema to the subcutaneous tissues without focal abnormality. DVT prophylaxis ordered?: TEDs, sequential, knee-high compression, and ambulation. ASSESSMENT AND PLAN: This is a 38-year-old female with epigastric pain, nausea, vomiting found to have gallbladder dysfunction. PROBLEMS: 1. Epigastric pain with nausea and vomiting: Likely secondary to gallbladder dysfunction. Reports previous and worsening "attacks" over the last 6 months. No leukocytosis, afebrile, not hypotensive. Lipase within normal limits. TTG and endomysial IgA negative. Gastroenterology consulted. Upper endoscopy unrevealing. HIDA scan reveals 5% gallbladder ejection fraction. Attempted to advance diet, but was unsuccessful due to worsening symptoms. Currently, clear liquid diet although patient is abstaining from any oral intake. Intravenous fluid resuscitation with normal saline at 125 mLs/hr. General surgery consulted. Cholecystectomy scheduled for 09/04/2018. Consent obtained by general surgery. Protonix IV held. This can likely be discontinued status post surgery. Morphine as needed for pain. Tylenol as needed for pain. LFTs are negative. Negative beta-hCG. Coagulation studies ordered and are negative. Lovenox has been discontinued pending upcoming surgery. Patient has been encouraged to ambulate to prevent DVT. Could consider gastric emptying study. Hemoglobin A1c 5.0. [place] Perioperative Risk is 0.1% for myocardial infarction or cardiac arrest, intraoperatively or up to 30 days post-operatively. Preoperative mortality is 0.6%. 2. Left axilla fluctuance: Ultrasound obtained and revealed edema without lymphadenopathy or discrete abscess. Patient may apply warm compresses to the area with elevation of upper extremity. No indication for antibiotics at this time. 3. Recurrent headaches: Controlled with Fioricet. May continue morning of surgery. 4. Hypertension: HCTZ and Cozaar held. May resume status post surgery. 5. Hypothyroidism: Continue Levothyroxine. TSH level elevated, but FT4 within normal limits. Likely stress-induced. Continue medication morning of surgery. DISPOSITION: Cholecystectomy scheduled for 09/04/2018. Diet recommendations deferred to general surgery. VS, I&O, 24H, Fishbone Vital Signs/I&O Vital Signs Date Time Temp Pulse Resp B/P (MAP) Pulse Ox O2 Delivery O2 Flow Rate FiO2 09/04/18 16:00 98.2 81 18 136/76 (96) 96 Room Air I&O- Last 24 Hours up to 6 AM 09/04/18 06:00 Intake Total 2640 ml Output Total 900 ml Balance 1740 ml Laboratory Data 24H LABS Laboratory Tests 2 09/04/18 06:15: Anion Gap 8, Glomerular Filtration Rate > 60.0, Blood Urea Nitrogen 7, Creatinine 0.86, Sodium Level 141, Potassium Level 3.6, Chloride Level 107, Carbon Dioxide Level 26, Calcium Level 8.5 CBC/BMP Laboratory Tests 09/04/18 06:15 Calcium Level 8.5 JELANI BLANCO DO Sep 04, 2018 16:39
[2018-09-04] MEDS ORDERED: dexameTHASONE 4 MG/ML 1ML VIAL (J1100) As Ordered ONE (17:03)
[2018-09-04] MEDS ORDERED: ROCURONIUM BROMIDE 50 MG/5 ML VIAL As Ordered ONE ×2 (17:03→19:01)
[2018-09-04] MEDS ORDERED: PROPOFOL 200 MG/20 ML VIAL As Ordered ONE (17:03)
[2018-09-04] MEDS ORDERED: ONDANSETRON 4MG/2ML VIAL (J2405) As Ordered ONE (17:03)
[2018-09-04] MEDS ORDERED: LIDOCAINE 2% INJ 100 MG/5 ML SDV (FOR ANES.) As Ordered ONE (17:03)
[2018-09-04] MEDS ORDERED: GLYCOPYRROLATE INJ 0.2 MG/ML 2 ML VIAL As Ordered ONE (17:03)
[2018-09-04] MEDS ORDERED: NEOSTIGMINE 10 MG/10 ML VIAL (J2710) As Ordered ONE (17:03)
[2018-09-04] MEDS ORDERED: BUPIVACAINE HCL 0.25% 30 ML VIAL As Ordered ONE (17:04)
[2018-09-04] MEDS ORDERED: MIDAZOLAM INJ 2 MG/2 ML VIAL (J2250) As Ordered ONE (17:04)
[2018-09-04] MEDS ORDERED: HYDROmorphone HCL 2 MG/ML 1ML VIAL (J1170) As Ordered ONE (17:04)
[2018-09-04] MEDS ORDERED: fentaNYL 100 MCG/2 ML INJECTION (J3010) As Ordered ONE (17:04)
[2018-09-04] MEDS ORDERED: CONRAY-60 60% 50ML VIAL (Q9961) As Ordered ONE (17:39)
[2018-09-04] MEDS ORDERED: SUGAMMADEX SODIUM 500 MG/5 ML VIAL (BRIDION) As Ordered ONE (19:54)
[2018-09-04] MEDS ORDERED: PERCOCET 5MG/325MG TAB As Ordered ONE (20:24)
[2018-09-04] MEDS ORDERED: LR 1,000 ML IV SCH (20:30)
[2018-09-04] MEDS ORDERED: HYDROMORPHONE HCL 0.5 MG/ 0.5 ML SYRINGE (J1170 PER 1) IV PRN (20:30)
[2018-09-04] MEDS ORDERED: ONDANSETRON 4MG/2ML VIAL (J2405) IV PRN (20:30)
[2018-09-04] MEDS ORDERED: PERCOCET 5MG/325MG TAB PO PRN (20:30)
[2018-09-04] MEDS ORDERED: fentaNYL 100 MCG/2 ML INJECTION (J3010) IV PRN (20:30)
[2018-09-04 21:00] VITALS: BP 156/80
[2018-09-04 21:30] VITALS: BP 145/80
[2018-09-04] MEDS: diphenhydrAMINE INJ 50MG/ML VIAL (J1200) IV PRN (22:19)
[2018-09-04] MEDS: MORPHINE 4 MG/ML 1ML VIAL/SYRINGE (J2270) IV PRN (22:19)
[2018-09-04 23:00] VITALS: BP 147/83
[2018-09-05] VITALS (7 sets, daily range): BP systolic 130–158; BP diastolic 72–89
[2018-09-05] MEDS: NORCO, ANEXSIA 5/325MG TABLET (HYDROcodone/ACETAMINOPHEN) PO PRN ×2 (03:44→13:59)
[2018-09-05] MEDS: MORPHINE 4 MG/ML 1ML VIAL/SYRINGE (J2270) IV PRN ×3 (04:53→20:19)
[2018-09-05] MEDS: LEVOTHYROXINE 37.5MCG PER 1/2TAB (0.0375MG) PO SCH (06:08)
[2018-09-05 07:57] LABS: BASO % 0.3 % (0.0-1.0); EOS % 0.1 % (0.0-3.0); HEMATOCRIT 31.9 % (36.0-47.0); HEMOGLOBIN 11.1 g/dl (12.0-15.5); LYMPH # 1.1 10^3/uL (1.5-4.5); LYMPH % 15.2 % (24.0-44.0); MEAN CORPUSCULAR HGB CONC 34.8 g/dl (32.0-36.5); MEAN CORPUSCULAR VOLUME 80.4 fl (80.0-96.0); MONO # 0.4 10^3/uL (0.0-0.8); MONO % 4.8 % (0.0-5.0); NEUTROPHILS # 5.8 10^3/uL (1.8-7.7); NEUTROPHILS % 79.2 % (36.0-66.0); PLATELET COUNT, AUTOMATED 243 10^3/uL (150-450); RED BLOOD COUNT 3.97 10^6/uL (4.00-5.40); WHITE BLOOD COUNT 7.3 10^3/uL (4.0-10.0)
[2018-09-05 08:27] LABS: BLOOD UREA NITROGEN 7 MG/DL (7-18); CALCIUM LEVEL 8.2 MG/DL (8.5-10.1); CARBON DIOXIDE LEVEL 24 MEQ/L (21-32); CHLORIDE LEVEL 104 MEQ/L (98-107); GLOMERULAR FILTRATION RATE > 60.0 (>60); GLUCOSE, FASTING 72 MG/DL (70-100); POTASSIUM SERUM 3.8 MEQ/L (3.5-5.1); SODIUM LEVEL 139 MEQ/L (136-145)
[2018-09-05] MEDS: NS 1,000 ML IV SCH ×2 (08:48→09:16)
--- NOTE | 2018-09-05 09:11 | RO ---
DATE OF PROCEDURE: 09/04/2018 PREOPERATIVE DIAGNOSIS: Biliary dyskinesia. POSTOPERATIVE DIAGNOSIS: Biliary dyskinesia. PROCEDURE: Laparoscopic cholecystectomy with intraoperative cholangiogram. SURGEON: Dr. John Mackay DIRECTOR REHABILITATION PROGRAM: ANESTHESIA: General. INDICATIONS FOR PROCEDURE: The patient is a 38-year-old woman who has had an approximately 6-month history of intermittent episodes of postprandial epigastric pain. She had a recent attack that was more severe than usual and she was admitted to the hospital. Gallbladder ultrasound was suboptimal due to anatomic problems. An upper endoscopy showed no potential etiology for her pain. Nuclear biliary scan showed a low ejection fraction. The patient was diagnosed with biliary dyskinesia and is now for a laparoscopic cholecystectomy with intraoperative cholangiogram. DESCRIPTION OF PROCEDURE: The patient was brought to the operating room and placed on the table in a supine position. The patient was placed under general endotracheal anesthesia. The patient's abdomen was prepped and draped in a sterile fashion. 0.25% Marcaine was infiltrated at each of the trocar sites in turn. A short left upper quadrant incision was made and a Veress needle was inserted. After a positive hanging drop test, the abdomen was inflated with carbon dioxide gas. Though initial inflation seemed appropriate, the pressure rapidly ana laura and the Veress needle was removed and reinserted, again with a positive hanging drop test. Again on insufflation, high pressures were noted. Therefore, this site was abandoned, and a new site in the right upper quadrant was injected with local anesthesia and a short incision was made. The Veress needle was inserted and after a positive hanging drop test, the abdomen was inflated with low pressures and good insufflation. A 5 mm port was placed over a 5 mm scope, and this was advanced through the incision in the right upper quadrant without difficulty. Initial examination showed normal appearing liver. Visualized loops of the small and large bowel were normal. There appeared to be some insufflation of gas into the left side of the abdominal wall. There was no sign of penetration of the peritoneum from the Veress needle. A 5 mm port was placed through the incision in the left upper quadrant. An 11 mm trocar was then placed just to the right of the midline slightly above the level of the umbilicus. A final 5 mm port was placed in the right upper quadrant laterally. Inspection showed that the gallbladder was noted in the usual position. There was perhaps some minimal edema of the gallbladder, though this was not definite. There appeared to be a faint bilious cast to the gallbladder but not acute inflammation. The patient was tilted to a reverse Trendelenburg position and rolled to the left. The gallbladder was grasped and elevated. Dissection was begun in the region of the gallbladder neck. The patient was found to have a long thin cystic duct. The cholecystic vessels followed the cystic duct, and these were both off and clipped with hemoclips and divided. The cystic duct was then clipped at the gallbladder neck and then nicked. The cystic duct was quite small in diameter. It was possible to insert the balloon cholangiogram catheter into the duct. The balloon was inflated and cholangiograms were obtained with the injection of 30% Conray. Initial images showed only filling of the common bile duct with free flow of contrast into the duodenum. The duct was thin with no evidence of dilation. The balloon was then deflated and additional images were obtained with further injection of contrast, and there was complete filling of the common hepatic duct and intrahepatic radicals. The ducts were narrow with no dilation and no evidence of filling defects. There was free flow of contrast into the duodenum. The catheter was then removed, and the cystic duct was clipped and divided. The gallbladder was dissected free from the gallbladder bed using cautery dissection. The gallbladder was not perforated. The gallbladder was placed in an Endopouch. The right upper quadrant was irrigated and inspected, and there was no evidence of bleeding or bile leak. The patient was returned to a flat position. The abdomen was initially deflated and the trocars were removed. The gallbladder was recovered through the right upper quadrant 11 mm port site. There were no definite stones palpable within the gallbladder. I elected to reinsert one of the 5 mm ports in the left upper quadrant to reinflate the abdomen and use an Endoclose device to close the 11 mm port site. This was accomplished using a #2-0 Vicryl passed with the Endoclose device to close the inner fascia at this site. Following this, final inspection showed no evidence of any bleeding, and the abdomen was again deflated and the final trocar was removed. The skin incisions were all closed with buried #5-0 Vicryl and Steri-Strips. Light dressings were applied. The patient tolerated the procedure well without apparent complication. She was awakened in the operating room, extubated, and moved to the recovery room in stable condition.
[2018-09-05] MEDS: BACTRIM 160MG/800MG DS TAB PO SCH ×2 (09:56→20:18)
[2018-09-05] MEDS: ONDANSETRON 4MG/2ML VIAL (J2405) IV PRN (10:45)
[2018-09-05] MEDS: LOSARTAN 50 MG TAB PO SCH (10:46)
[2018-09-05] MEDS: hydroCHLOROthiazide 12.5 MG CAPSULE PO SCH (10:47)
[2018-09-05] MEDS ORDERED: SULF1TAB93 PO (11:43)
[2018-09-05] MEDS ORDERED: NORCOTAB PO (11:53)
[2018-09-05] MEDS ORDERED: ZOFR4TAB16 PO (11:54)
--- NOTE | 2018-09-05 12:22 | DS.PDOC ---
Discharge Summary General Date of Admission Sep 01, 2018 at 13:34 Date of Discharge 09/07/2018 Primary Care Physician: GABY LASSITER MD Specialist/Consultants Involve: ROS SHAFER MD Specialist/Consultants Involve General surgeon: Dr. Mackay Primary care provider: [facility] Discharge Summary PROCEDURES PERFORMED DURING STAY: 1. Upper gastrointestinal endoscopy. 2. Laparoscopic cholecystectomy with intraoperative cholangiogram. ADMITTING DIAGNOSES: 1. Abdominal pain not otherwise specified. DISCHARGE DIAGNOSES: 1. Biliary dyskinesia. 2. Hypertension. 3. Hypothyroidism. COMPLICATIONS/CHIEF COMPLAINT: Epigastric Abdominal Pain. HISTORY OF PRESENT ILLNESS: 38-year-old female with past medical history of hypothyroidism, hypertension, who presents to the emergency room with epigastric abdominal pain which has been going on for a couple of days now, it exacerbates every time she eats. She has never had similar symptoms in the past. She has had some nausea, but no vomiting, no diarrhea. No subjective feeling of fever, aches, or chills. She does not smoke or drink or eat spicy foods and has no family history of gastric ulcers. In the emergency room (ER), she was given IV Protonix, ketorolac, morphine, and Zofran to only a mild degree of improvement. Dr. Shafer was called by the ER staff and is willing to see the patient in the morning for possible EGD. Patient thus will be admitted for further management. HOSPITAL COURSE: Patient was admitted to the medical surgical floor. She was started on IV Protonix, made nothing by mouth, and given intravenous fluid resuscitation with normal saline at 125 miles per hour. Gastroenterology was consulted. An upper gastrointestinal endoscopy was performed which was unrevealing besides large volume of liquid in the stomach despite patient being nothing by mouth. HIDA scan was performed which revealed gallbladder ejection fraction 5%. General surgery was consulted. Laparoscopic cholecystectomy with cholangiogram was performed. Patient's pain was initially controlled with morphine and Percocet. Status post cholecystectomy, Westhope was provided for pain control. Percocet prescribed at time of discharge. Zofran prescribed at time of discharge for continued nausea. Advanced diet as tolerated. Headache was treated with Tylenol, Toradol, and Fioricet. Pain and swelling in the left axilla resulted in an upper extremity ultrasound which is unrevealing. Swelling appeared to worsen. Patient started on oral Bactrim, but developed some renal insufficiency so this was discontinued. MRSA screen negative. At time of discharge prescribed Keflex 500 mg by mouth 4 times daily for 5 days. Follow up with general surgeon in 5-7 days. Patient did experience some nausea with reintroduction of time, but this improved with Zofran. Zofran has been prescribed at time of discharge. Patient instructed to follow a clear liquid diet initially following discharge. Milk of magnesia provided prior to discharge. Bowel sounds noted on abdominal examination prior to discharge. P atient clinically improved throughout hospitalization was stable at time of discharge. DISCHARGE MEDICATIONS: Please see below. ALLERGIES: Please see below. PHYSICAL EXAMINATION ON DISCHARGE: VITAL SIGNS: Please see below. GENERAL: Well-nourished, well-developed female, laying comfortably in hospital bed, appropriately dressed in hospital attire, alert and conversant, in no acute distress. HEENT: Atraumatic, normocephalic, PERRL, EOMI, conjunctivae injected from crying, oral mucosa appears pink and moist, nasal septum appears midline, nares are patent. NECK: Soft, supple, trachea midline, no lymphadenopathy appreciated, no thyromegaly. CARDIOVASCULAR EXAMINATION: Regular rate and rhythm, normal S1 and S2, no murmur, rub, click. RESPIRATORY EXAMINATION: Clear to auscultation bilaterally, adequate inspiratory and x-ray airway excursion, symmetric air entry throughout, no focal consolidations, no wheeze, rhonchi, crackles. ABDOMINAL EXAMINATION: Round, soft, improvements with pain to palpation, no guarding, no rebound, bowel sounds appreciated throughout, several laparoscopic surgical incisions noted on the anterior abdomen that are covered Steri-Strips. EXTREMITIES: No cyanosis, no clubbing no peripheral edema, somewhat fluctuant mass noted in the left axilla with a small, somewhat ovoid, smooth 0.5 x 0.5 cm in size, no drainage, no erythema, peripheral pulses are equal and symmetrical, +2. SKIN: Warm, dry, intact, examination as noted in "extremities" and "abdominal examination." NEUROLOGICAL EXAMINATION: No focal neurological deficits. PSYCHIATRIC EXAMINATION: Mood and affect appropriate. LABORATORY DATA: Please see below. IMAGIN. Limited abdominal ultrasound on 08/31/2018 - Partially obscured gallbladder. No definite stone but poorly and incompletely visualized. Normal CBD. Small cyst right kidney. 2. CT abdomen and pelvis with IV contrast only on 08/31/2018 - Status post appendectomy and tubal ligation. No acute abdominal or pelvic abnormality. 3. CT chest angiogram on 08/31/2018 - No CT evidence of pulmonary embolus. Old granulomatous calcifications left lower lobe. Otherwise negative. 4. HIDA scan with gallbladder ejection fraction on 09/01/2018 - No cholecystitis, ejection fraction 5%. 5. CT head without contrast on 09/02/2018 - No intracranial lesion. 6. Left extremity non-vascular ultrasound on 09/02/2018 - Mild/moderate edema to the subcutaneous tissues without focal abnormality. 7. Cholangiogram. PROGNOSIS: Stable. ACTIVITY: As tolerated. DIET: 2 g sodium. DISCHARGE PLAN: As outlined below. DISPOSITION: Home. DISCHARGE INSTRUCTIONS: 1. Complete the antibiotic, Keflex 500 mg by mouth 4 times daily for 5 days. 2. Take Westhope one tablet by mouth every 8 hours as needed with a MDD: 3 for pain. 3. Apply warm compress to the left axilla 3-4 times a day as needed. 4. Follow-up with primary care provider at [facility] in 7-10 days; call for an appointment. 5. Follow up with general surgeon, Dr. Mackay, on 09/16/2018 at 10 AM. 6. Recovery from laparoscopic cholecystectomy may take 1-3 weeks symptoms ranging from abdominal pain which did ease over several days to week, sore throat which may be relieved with ice chips or gargling, nausea for 2 medication has been prescribed, loose stools after eating, bruising and skin redness around laparoscopic incisions which should resolve on their own. 7. Early ambulation is important; you may move around the house and shower within your first week, but if an activity creates pain stop doing that activity; you may drive in 2-3 days as long as she was not taking narcotics; you may lift approximately 15 pounds; DO NOT do heavy lifting in the first 1-2 weeks; you may return to work in 2 weeks. 8. Your incisions were covered with Steri-Strips, so cover these with plastic wrap before showering in the first week after surgery; DO NOT attempt to remove the Steri-Strips, they will fall off on their own; DO NOT soak in a bathtub or hot tub or go swimming. 9. You may eat a normal diet, but may want to avoid greasy or spicy food. ITEMS TO FOLLOWUP ON ON OUTPATIENT: 1. Status post cholecystectomy. 2. Headaches. 3. Could consider possible gastric emptying study. DISCHARGE CONDITION: Stable. TIME SPENT ON DISCHARGE: Greater than 30 minutes. Vital Signs/I&Os Vital Signs Date Time Temp Pulse Resp B/P (MAP) Pulse Ox O2 Delivery O2 Flow Rate FiO2 09/05/18 10:46 158/89 09/05/18 08:58 98.6 96 18 97 Room Air 09/05/18 08:00 2.0 I&O- Last 24 Hours up to 6 AM 09/05/18 06:00 Intake Total 1920 ml Output Total 1270 ml Balance 650 ml Laboratory Data Labs 24H Laboratory Tests 2 09/05/18 07:11: Immature Granulocyte % (Auto) 0.4, White Blood Count 7.3, Red Blood Count 3.97L, Hemoglobin 11.1L, Hematocrit 31.9L, Mean Corpuscular Volume 80.4, Mean Corpuscular Hemoglobin 28.0, Mean Corpuscular Hemoglobin Concent 34.8, Red Cell Distribution Width 12.9, Platelet Count 243, Neutrophils (%) (Auto) 79.2H, Ly mphocytes (%) (Auto) 15.2L, Monocytes (%) (Auto) 4.8, Eosinophils (%) (Auto) 0.1, Basophils (%) (Auto) 0.3, Neutrophils # (Auto) 5.8, Lymphocytes # (Auto) 1.1L, Monocytes # (Auto) 0.4, Eosinophils # (Auto) 0.0, Basophils # (Auto) 0.0, Nucleated Red Blood Cells % (auto) 0.0, Anion Gap 11, Glomerular Filtration Rate > 60.0, Blood Urea Nitrogen 7, Creatinine 0.70, Sodium Level 139, Potassium Level 3.8, Chloride Level 104, Carbon Dioxide Level 24, Calcium Level 8.2L CBC/BMP Laboratory Tests 09/05/18 07:11 Red Blood Count 3.97 L, Mean Corpuscular Volume 80.4, Mean Corpuscular Hemoglobin 28.0, Mean Corpuscular Hemoglobin Concent 34.8, Red Cell Distribution Width 12.9, Neutrophils (%) (Auto) 79.2 H, Lymphocytes (%) (Auto) 15.2 L, Monocytes (%) (Auto) 4.8, Eosinophils (%) (Auto) 0.1, Basophils (%) (Auto) 0.3, Neutrophils # (Auto) 5.8, Lymphocytes # (Auto) 1.1 L, Monocytes # (Auto) 0.4, Eosinophils # (Auto) 0.0, Basophils # (Auto) 0.0, Calcium Level 8.2 L Discharge Medications Scheduled (Hyzaar 50-12.5 mg) 1 Tab Tab, 1 TAB PO DAILY, (Reported) Cephalexin Monohydrate (Keflex) 500 Mg Cap, 500 MG PO QID Levothyroxine Sodium (Synthroid) 75 Mcg Tab, 37.5 MCG PO DAILY, (Reported) Losartan Potassium (Losartan Potassium) 25 Mg Tab, 25 MG PO DAILY, (Reported) Ondansetron HCl (Zofran) 4 Mg Tab, 1 TAB PO Q6H Scheduled PRN Acetaminophen/Hydrocodone (Westhope, Anexsia 5/325) 1 Tab Tab, 1 TAB PO Q8HP PRN for MODERATE/SEVERE PAIN (PS 5-10) Allergies Coded Allergies: No Known Allergies (Unverified , 02/18/18) JELANI BLANCO DO Sep 05, 2018 12:22
--- NOTE | 2018-09-05 14:00 | IPN ---
DATE: 09/05/2018 HISTORY: The patient is now postop day #1 from a laparoscopic cholecystectomy for biliary dyskinesia. Her surgery was uncomplicated. She had no palpable stones at the time of surgery. An intraoperative cholangiogram showed normal small ductal structures with no evidence of filling defects or obstruction. She has a small tender area beneath the left arm in the axilla but without any redness and an ultrasound several days ago showed no evidence of abscess or enlarged nodes. Vital Signs: The patient has been afebrile since surgery with a pulse in the 80s to 90s. Blood pressure is good with a pulse oximetry on room air that is normal. Intake and output yesterday showed 1980 in with 420 recorded out. Her urine output today is already 2000. She is taking liquids well. PHYSICAL EXAMINATION: Heart: Exam shows a regular rate and rhythm with a rate probably in the 80s. The lungs are clear. The abdomen is mildly obese but flat. She has active bowel sounds. Her dressings are clean and dry. The abdomen is soft without any undue tenderness. Laboratory studies were repeated by the hospitalist today and show white count of 7 with hemoglobin of 11, hematocrit 32 and platelet count of 243,000. Differential count shows 79% neutrophils, 15% lymphocytes and 5% monocytes. A chemistry profile is entirely normal. IMPRESSION: The patient is doing very well following her surgery. She had a little nausea with breakfast this morning but no vomiting. She reports that the left axilla is no worse. PLAN: I had Dr. Ro earlier today. She was considering IV antibiotics for a possible infection in the left axilla and I suggested oral antibiotics and discharge home. Apparently the plan, according to the patient now is to continue her on some oral antibiotics today and consider discharge tomorrow. From my standpoint, the patient can be discharged home whenever the hospitalists determine they are satisfied with her status. I will sign off the case at this time and she can be discharged at the leisure of the hospitalist. She should follow up with me in 7-10 days.
[2018-09-05] MEDS: diphenhydrAMINE INJ 50MG/ML VIAL (J1200) IV PRN (20:18)
[2018-09-06] VITALS: BP 124/66
[2018-09-06 04:00] VITALS: BP 124/72
[2018-09-06] MEDS: NORCO, ANEXSIA 5/325MG TABLET (HYDROcodone/ACETAMINOPHEN) PO PRN ×4 (04:34→23:11)
[2018-09-06] MEDS: LEVOTHYROXINE 37.5MCG PER 1/2TAB (0.0375MG) PO SCH (05:49)
[2018-09-06 07:00] LABS: HEMATOCRIT 36.9 % (36.0-47.0); HEMOGLOBIN 12.5 g/dl (12.0-15.5); MEAN CORPUSCULAR HEMOGLOBIN 28.2 pg (27.0-33.0); MEAN CORPUSCULAR HGB CONC 33.9 g/dl (32.0-36.5); MEAN CORPUSCULAR VOLUME 83.3 fl (80.0-96.0); PLATELET COUNT, AUTOMATED 255 10^3/uL (150-450); RED BLOOD COUNT 4.43 10^6/uL (4.00-5.40); WHITE BLOOD COUNT 5.6 10^3/uL (4.0-10.0)
[2018-09-06 07:16] LABS: CALCIUM LEVEL 8.9 MG/DL (8.5-10.1); CREATININE FOR GFR 1.18 MG/DL (0.55-1.30); GLOMERULAR FILTRATION RATE 54.6 (>60); POTASSIUM SERUM 3.8 MEQ/L (3.5-5.1)
--- NOTE | 2018-09-06 07:43 | IPNPDOC ---
Text Note Date of Service The patient was seen on 09/06/18. NOTE SUBJECTIVE: Patient seen and examined at bedside. States she had not eaten much mostly secondary to nausea. Urinating well, no bowel movements. Still some pain with her left axilla but manageable. OBJECTIVE PHYSICAL EXAMINATION: VITAL SIGNS: Please see below. GENERAL: NAD, lying comfortably in bed, in good spirits HEENT: NC/AT, EOMI, MMM CARDIOVASCULAR: +S1S2, RRR RESPIRATORY: CTA B/L ABDOMINAL: soft, NT, hypoactive BS EXTREMITIES: Warm, no edema, somewhat fluctuant area in the left axilla with a small, round, soft ovoid nodule approximately 0.5 x 0.5cm, no drainage. NEUROLOGICAL: No focal neurological deficits. PSYCHOLOGICAL: Mood and affect appropriate. ASSESSMENT AND PLAN: This is a 38-year-old female with epigastric pain, nausea, vomiting found to have gallbladder dysfunction, POD #2 lap choly. #epigastric pain/biliary dyskinesia - POD #2 lap choly - tolerating small amounts of food - no BM yet - surgery signed off - assistance appreciated #MAKEDA - likely related to Bactrim - d/c abx - monitor renal function #left axilla - no signs of infection - could consider restarting abx - perhaps cefdinir - MRSA screen pending - if positive will consider doxy #Recurrent headaches - controlled with Fioricet #HTN - continue HCTZ, Cozaar #hypothyroidism - continue levothyroxine #DVT prophylaxis Dispo: Anticipating discharge in 24 hours; awaiting BM; to determine abx pending MRSA screen VS,Avni, I+O VS, Avni, I+O Laboratory Tests 09/06/18 06:30 Red Blood Count 4.43, Mean Corpuscular Volume 83.3, Mean Corpuscular Hemoglobin 28.2, Mean Corpuscular Hemoglobin Concent 33.9, Red Cell Distribution Width 13.3, Calcium Level 8.9 Vital Signs Date Time Temp Pulse Resp B/P (MAP) Pulse Ox O2 Delivery O2 Flow Rate FiO2 09/06/18 05:05 16 09/06/18 04:00 98.5 98 124/72 (89) 97 Room Air 09/05/18 08:00 2.0 I&O- Last 24 Hours up to 6 AM 09/06/18 06:00 Intake Total 1410 ml Output Total 2300 ml Balance -890 ml GABY LASSITER MD Sep 06, 2018 07:43
[2018-09-06 08:00] VITALS: BP 122/77
[2018-09-06] MEDS: LOSARTAN 50 MG TAB PO SCH (09:07)
[2018-09-06] MEDS: hydroCHLOROthiazide 12.5 MG CAPSULE PO SCH (09:07)
[2018-09-06 12:00] VITALS: BP 126/71
[2018-09-06 16:00] VITALS: BP 128/74
[2018-09-06 20:00] VITALS: BP 138/79
[2018-09-06] MEDS: ONDANSETRON 4MG/2ML VIAL (J2405) IV PRN (23:08)
[2018-09-07] VITALS: BP 130/77
[2018-09-07 04:00] VITALS: BP 122/71
[2018-09-07] MEDS: LEVOTHYROXINE 37.5MCG PER 1/2TAB (0.0375MG) PO SCH (06:13)
[2018-09-07 07:03] LABS: HEMATOCRIT 36.6 % (36.0-47.0); HEMOGLOBIN 12.6 g/dl (12.0-15.5); MEAN CORPUSCULAR HGB CONC 34.4 g/dl (32.0-36.5); MEAN CORPUSCULAR VOLUME 81.3 fl (80.0-96.0); PLATELET COUNT, AUTOMATED 262 10^3/uL (150-450); WHITE BLOOD COUNT 4.9 10^3/uL (4.0-10.0)
[2018-09-07 07:31] LABS: CALCIUM LEVEL 8.8 MG/DL (8.5-10.1); CREATININE FOR GFR 1.1 MG/DL (0.55-1.30); GLOMERULAR FILTRATION RATE 59.2 (>60); POTASSIUM SERUM 3.4 MEQ/L (3.5-5.1)
[2018-09-07] MEDS ORDERED: KEFL500C17 PO (07:36)
[2018-09-07] MEDS ORDERED: POTASSIUM CHLORIDE 10 MEQ SR TABLET PO ONE (07:45)
[2018-09-07 08:00] VITALS: BP 128/79
[2018-09-07] MEDS ORDERED: MOM 30ML SUSPENSION UDC PO ONE (08:15)
[2018-09-07] MEDS: hydroCHLOROthiazide 12.5 MG CAPSULE PO SCH (08:17)
[2018-09-07 08:18] VITALS: BP 128/79
[2018-09-07] MEDS: LOSARTAN 50 MG TAB PO SCH (08:18)
--- NOTE | 2018-09-07 09:45 | REP ---
C-ARM VIEWS FROM INTRAOPERATIVE CHOLANGIOGRAM: Seven C-arm views are performed during intraoperative cholangiogram. Contrast opacified the biliary system. There does not appear to be significant biliary dilatation. The common hepatic and common bile duct demonstrate no filling defect or stricture. There is free flow of contrast into the duodenum. 6 seconds of fluoroscopy time utilized for the procedure. Electronically Signed by Fuad You MD 09/07/2018 04:38 P
== END 2018-09-07 10:55 | disposition home or self-care (01) | DRG 419 ==
LOC: M ED 13:44 → M ED INP 18:06 → M PED 20:40 → OBSVTOIN 09-01 13:34
PROVIDERS: ADMIT Internal Medicine; ATTEND Internal Medicine
PROC: 0DJ08ZZ Inspection of Upper Intestinal Tract, Via Natural or Artificial Opening Endoscopic (ICD-10-PCS; 2018-09-01)
PROC: BF03YZZ Plain Radiography of Gallbladder and Bile Ducts using Other Contrast (ICD-10-PCS; 2018-09-04)
PROC: 0FT44ZZ Resection of Gallbladder, Percutaneous Endoscopic Approach (ICD-10-PCS; principal; 2018-09-04 16:30)
DX: K82.8 Other specified diseases of gallbladder (principal); N28.9 Disorder of kidney and ureter, unspecified; E03.9 Hypothyroidism, unspecified; I10 Essential (primary) hypertension; Z79.899 Other long term (current) drug therapy; Z90.49 Acquired absence of other specified parts of digestive tract; R11.2 Nausea with vomiting, unspecified; R51 Headache; E66.9 Obesity, unspecified; Z68.35 Body mass index [BMI] 35.0-35.9, adult; T37.0X5A Adverse effect of sulfonamides, initial encounter

== ENCOUNTER → 2018-11-11 | Outpatient (CLI) | payer OTHER ==
[~2018-11-11] MED LIST changes: +HYDR-3715 PO; +KEFL500C17 PO; +LOSA25TA14 PO; -NORCOTAB PO; +SULF1TAB93 PO; +SYNT75TA PO; +ZOFR4TAB16 PO
--- NOTE | 2018-11-11 10:49 | REP ---
Gastric emptying nuclear scintigraphy: History: Undigested food in stomach. A value vomiting early fullness. Technique: 1.06 mCi of technetium-99m sulfur colloid was ingested in two scrambled eggs and 6 ounces of water and sequential anterior and posterior images are acquired for an 89-minute imaging observation period. Regions of interest are drawn around the stomach to plot gastric emptying. Scintigraphic findings: Expected T1/2 is 90 minutes. 12 % emptying is observed in this patient during the 89-minute imaging observation period, for a calculated T1/2 in this patient of 357 minutes. Impression: Markedly delayed gastric emptying. Electronically Signed by Pete Maurice MD 11/11/2018 10:40 A
== END ==
LOC: M RAD 08:34
PROVIDERS: ATTEND Family Medicine
DX: K31.84 Gastroparesis (principal); Z90.49 Acquired absence of other specified parts of digestive tract
CPT/HCPCS: 78264; A9541

== ENCOUNTER → 2019-01-24 | Outpatient (REF) | payer OTHER ==
[2019-01-24 14:07] LABS: HEMATOCRIT 37.5 % (36.0-47.0); HEMOGLOBIN 12.6 g/dl (12.0-15.5); MEAN CORPUSCULAR HEMOGLOBIN 28.7 pg (27.0-33.0); MEAN CORPUSCULAR HGB CONC 33.6 g/dl (32.0-36.5); MEAN CORPUSCULAR VOLUME 85.4 fl (80.0-96.0); PLATELET COUNT, AUTOMATED 271 10^3/uL (150-450); RED BLOOD COUNT 4.39 10^6/uL (4.00-5.40); WHITE BLOOD COUNT 5.4 10^3/uL (4.0-10.0)
== END ==
LOC: M LAB REF 15:14
PROVIDERS: ATTEND Nurse Practitioner Family
DX: B34.9 Viral infection, unspecified (principal)

== ENCOUNTER → 2019-01-26 | Outpatient (CLI) | payer OTHER ==
--- NOTE | 2019-01-26 17:21 | REP ---
PA and lateral chest: Comparison is 02/19/2018. The lung garcia are clear. The cardiac size is normal. The tom, mediastinum, and skeletal structures are unremarkable. Impression: Negative PA and lateral chest. There is no interval change. Electronically Signed by Fuad Kelley MD 01/26/2019 05:12 P
== END ==
LOC: M RAD 16:43
PROVIDERS: ATTEND Physician Assistant Medical
DX: R06.02 Shortness of breath (principal)

== ENCOUNTER → 2019-02-19 | Outpatient (CLI) | payer OTHER ==
[2019-02-19 10:00] LABS: BASO % 0.9 % (0.0-1.0); EOS # 0.2 10^3/uL (0.0-0.50); EOS % 3.8 % (0.0-3.0); HEMOGLOBIN 12.1 g/dl (12.0-15.5); LYMPH # 1.4 10^3/uL (1.5-4.5); LYMPH % 30.8 % (24.0-44.0); MEAN CORPUSCULAR HEMOGLOBIN 27.9 pg (27.0-33.0); MEAN CORPUSCULAR HGB CONC 33.6 g/dl (32.0-36.5); MEAN CORPUSCULAR VOLUME 83.1 fl (80.0-96.0); MONO # 0.3 10^3/uL (0.0-0.8); NEUTROPHILS # 2.6 10^3/uL (1.8-7.7); NEUTROPHILS % 58.3 % (36.0-66.0); PLATELET COUNT, AUTOMATED 264 10^3/uL (150-450); RED BLOOD COUNT 4.33 10^6/uL (4.00-5.40); WHITE BLOOD COUNT 4.5 10^3/uL (4.0-10.0)
[2019-02-19 10:39] LABS: ALBUMIN 4.1 GM/DL (3.2-5.2); ALT/SGPT 30 U/L (12-78); BLOOD UREA NITROGEN 14 MG/DL (7-18); CALCIUM LEVEL 8.7 MG/DL (8.5-10.1); CARBON DIOXIDE LEVEL 27 MEQ/L (21-32); CHLORIDE LEVEL 108 MEQ/L (98-107); FREE T4 0.91 NG/DL (0.76-1.46); GLOMERULAR FILTRATION RATE > 60.0 (>60); GLUCOSE, FASTING 85 MG/DL (70-100); SODIUM LEVEL 141 MEQ/L (136-145); TOTAL PROTEIN 7.1 GM/DL (6.4-8.2)
[2019-02-24 08:05] LABS: CALPROTECTIN STOOL 40 ug/g (0-120); PANCREATIC ELASTASE STOOL >500 (>200)
== END ==
LOC: M LAB 09:27
PROVIDERS: ATTEND Internal Medicine Gastroenterology
DX: K58.0 Irritable bowel syndrome with diarrhea (principal); K31.84 Gastroparesis

== ENCOUNTER 2019-02-22 10:00 | Day surgery (SDC) | payer OTHER ==
[~2019-02-22] VITALS: Ht 154.9 cm; Wt 77.1 kg
[~2019-02-22 10:00] MED LIST changes: +LIDOCAINE 2% INJ 100 MG/5 ML SDV (FOR ANES.) As Ordered ONE; +NS 1,000 ML IV ONE; +PROPOFOL 200 MG/20 ML VIAL As Ordered ONE
--- NOTE | 2019-02-22 11:50 | ROOR ---
Patient Name: Ayesha Benavides Procedure Date: 02/22/2019 11:39 AM Date of : 1980 Age: 38 Room: [facility] Gender: Female Note Status: Finalized Procedure: Upper GI endoscopy Indications: Gastroparesis, Diarrhea, Nausea Providers: Austyn SHAFER MD Referring MD: Rob Wu Do Requesting Provider: Medicines: Monitored Anesthesia Care Complications: No immediate complications. Procedure: Pre-Anesthesia Assessment: - The heart rate, respiratory rate, oxygen saturations, blood pressure, adequacy of pulmonary ventilation, and response to care were monitored throughout the procedure. The Endoscope was introduced through the mouth, and advanced to the second part of duodenum. The upper GI endoscopy was accomplished without difficulty. The patient tolerated the procedure well. Findings: The esophagus was normal. The stomach was normal. The examined duodenum was normal. Biopsies for histology were taken with a cold forceps in the second portion of the duodenum and in the third portion of the duodenum for evaluation of celiac disease. Impression: - Normal esophagus. - Normal stomach. - Normal examined duodenum. - Biopsies were taken with a cold forceps for evaluation of celiac disease. Recommendation: - Continue present medications. - Telephone endoscopist for pathology results in 2 weeks. - Gastroparesis diet: - Eat smaller, more frequent meals throughout the day. - Low fat diet. - Liquid/soft foods are tolerated better than solid foods. - Low fiber/well cooked vegetables are tolerated better than high fiber/fibrous foods/raw vegetables. - Avoid medications that inhibit gastric/intestinal motility such as narcotic medications. Austyn Shafer MD Austyn SHAFER MD 02/22/2019 11:49:55 AM Electronically signed by Austyn SHAFER MD Number of Addenda: 0 Note Initiated On: 02/22/2019 11:39 AM Estimated Blood Loss: Estimated blood loss: none.
--- NOTE | 2019-02-22 12:08 | ROOR ---
Patient Name: Ayesha Benavides Procedure Date: 02/22/2019 11:40 AM Date of : 1980 Age: 38 Room: OP02 Gender: Female Note Status: Finalized Procedure: Colonoscopy Indications: Irritable bowel syndrome with diarrhea, Change in bowel habits Providers: Austyn SHAFER MD Referring MD: Rob Wu Do, ANTHONY CRUZ MD Requesting Provider: Medicines: Monitored Anesthesia Care Complications: No immediate complications. Procedure: Pre-Anesthesia Assessment: - The heart rate, respiratory rate, oxygen saturations, blood pressure, adequacy of pulmonary ventilation, and response to care were monitored throughout the procedure. The Colonoscope was introduced through the anus and advanced to 15 cm into the ileum. The colonoscopy was performed without difficulty. The patient tolerated the procedure well. The quality of the bowel preparation was good. Findings: The perianal and digital rectal examinations were normal. The colon (entire examined portion) appeared normal. The terminal ileum appeared normal. Internal hemorrhoids were found during retroflexion. The hemorrhoids were medium-sized. Retroflexion in the right colon was performed. Biopsies for histology were taken with a cold forceps from the entire colon for evaluation of microscopic colitis. Impression: - The entire colon is normal. - The examined portion of the ileum was normal. - Internal hemorrhoids. - Biopsies were taken with a cold forceps from the entire colon for evaluation of microscopic colitis. Recommendation: - Telephone endoscopist for pathology results in 2 weeks. - Continue present medications. Austyn Shafer MD Austyn SHAFER MD 02/22/2019 12:08:31 PM Electronically signed by Austyn SHAFER MD Number of Addenda: 0 Note Initiated On: 02/22/2019 11:40 AM Estimated Blood Loss: Estimated blood loss: none.
[2019-02-22 12:35] VITALS: BP 152/91
== END 2019-02-22 12:52 | disposition home or self-care (01) ==
LOC: M OPP 10:00
PROVIDERS: ATTEND Internal Medicine Gastroenterology
DX: K64.8 Other hemorrhoids (principal); K58.0 Irritable bowel syndrome with diarrhea; R19.4 Change in bowel habit; K31.84 Gastroparesis; R11.0 Nausea; R19.7 Diarrhea, unspecified; Z79.899 Other long term (current) drug therapy; Z79.891 Long term (current) use of opiate analgesic; Z88.2 Allergy status to sulfonamides; Z88.8 Allergy status to other drugs, medicaments and biological substances

== ENCOUNTER 2019-04-05 12:43 | Emergency (ER) | payer OTHER ==
[~2019-04-05] VITALS: Ht 154.9 cm; Wt 77.3 kg
[~2019-04-05 12:43] MED LIST changes: -LIDOCAINE 2% INJ 100 MG/5 ML SDV (FOR ANES.) As Ordered ONE; -NS 1,000 ML IV ONE; -PROPOFOL 200 MG/20 ML VIAL As Ordered ONE
[2019-04-05 13:28] LABS: BASO % 0.8 % (0.0-1.0); EOS # 0.2 10^3/uL (0.0-0.50); EOS % 3.2 % (0.0-3.0); HEMATOCRIT 36.1 % (36.0-47.0); HEMOGLOBIN 12.1 g/dl (12.0-15.5); LYMPH # 1.8 10^3/uL (1.5-4.5); LYMPH % 34.5 % (24.0-44.0); MEAN CORPUSCULAR HEMOGLOBIN 28.3 pg (27.0-33.0); MEAN CORPUSCULAR HGB CONC 33.5 g/dl (32.0-36.5); MEAN CORPUSCULAR VOLUME 84.5 fl (80.0-96.0); MONO # 0.3 10^3/uL (0.0-0.8); MONO % 6.1 % (0.0-5.0); NEUTROPHILS # 2.9 10^3/uL (1.8-7.7); NEUTROPHILS % 55.2 % (36.0-66.0); PLATELET COUNT, AUTOMATED 299 10^3/uL (150-450); RED BLOOD COUNT 4.27 10^6/uL (4.00-5.40); WHITE BLOOD COUNT 5.3 10^3/uL (4.0-10.0)
[2019-04-05] MEDS ORDERED: NEOSPORIN TOP OINT 15GM TOP ONE (13:30)
[2019-04-05] MEDS ORDERED: EXPOSURE KIT-ADULT 7 DAY SUPPLY PO ONE (13:30)
[2019-04-05] MEDS ORDERED: TRUVTAB PO (13:40)
[2019-04-05] MEDS ORDERED: RALT40TA PO (13:40)
[2019-04-05 13:54] VITALS: BP 141/96
[2019-04-05 13:55] LABS: ALBUMIN 4.2 GM/DL (3.2-5.2); ALT/SGPT 54 U/L (12-78); BILIRUBIN,TOTAL 0.5 MG/DL (0.2-1.0); BLOOD UREA NITROGEN 9 MG/DL (7-18); CALCIUM LEVEL 9.3 MG/DL (8.5-10.1); CARBON DIOXIDE LEVEL 27 MEQ/L (21-32); CHLORIDE LEVEL 105 MEQ/L (98-107); CREATININE FOR GFR 0.92 MG/DL (0.55-1.30); GLOMERULAR FILTRATION RATE > 60.0 (>60); GLUCOSE, FASTING 87 MG/DL (70-100); SODIUM LEVEL 141 MEQ/L (136-145); TOTAL PROTEIN 7.3 GM/DL (6.4-8.2)
[2019-04-05 14:01] LABS: HCG, SERUM QUALITATIVE NEGATIVE (NEGATIVE)
[2019-04-05 14:02] LABS: HEPATITIS B SURFACE ANTIBODY POSITIVE (POSITIVE)
[2019-04-05 14:13] LABS: HEPATITIS B SURFACE ANTIGEN NEGATIVE (NEGATIVE)
[2019-04-05 14:41] LABS: HEPATITIS C VIRUS ABY INDEX < 0.0 INDEX (<0.8)
== END 2019-04-05 14:30 | disposition home or self-care (01) ==
LOC: M ED 12:43
DX: S61.031A Puncture wound without foreign body of right thumb without damage to nail, initial encounter (principal); W27.3XXA Contact with needle (sewing), initial encounter; Y92.238 Other place in hospital as the place of occurrence of the external cause; Y93.89 Activity, other specified; Y99.0 Civilian activity done for income or pay; I10 Essential (primary) hypertension; E03.9 Hypothyroidism, unspecified; R20.2 Paresthesia of skin; Q61.3 Polycystic kidney, unspecified; Z79.899 Other long term (current) drug therapy; Z88.1 Allergy status to other antibiotic agents

== ENCOUNTER 2019-06-07 20:52 | Emergency (ER) | payer OTHER ==
[~2019-06-07] VITALS: Ht 154.9 cm; Wt 77.3 kg
[~2019-06-07 20:52] MED LIST changes: +RALT40TA PO; +TRUVTAB PO
[2019-06-07] MEDS ORDERED: AMIT50TA PO (22:20)
[2019-06-07] MEDS ORDERED: ACETAMINOPHEN 325 MG TAB PO ONE (23:45)
[2019-06-08] MEDS ORDERED: KETOROLAC 30 MG/ML VIAL (J1885) IM ONE (02:00)
[2019-06-08 02:16] VITALS: BP 146/88
--- NOTE | 2019-06-08 07:59 | REP ---
Clinical: Right lower extremity pain and swelling . Technique: You scale and color Doppler evaluation using linear high frequency transducer. Findings: Ultrasound examination of the right lower extremity deep venous structures from the common femoral vein to the popliteal vein demonstrates normal compressibility flow and wave patterns in response to respiration and augmentation. There is no evidence for deep venous thrombosis. Impression: No evidence for deep venous thrombosis. Electronically Signed by Michael Munoz MD 06/08/2019 07:50 A
== END 2019-06-08 02:18 | disposition home or self-care (01) ==
LOC: M ED 20:52
DX: G90.521 Complex regional pain syndrome I of right lower limb (principal); M79.604 Pain in right leg; R22.41 Localized swelling, mass and lump, right lower limb; I11.0 Hypertensive heart disease with heart failure; E03.9 Hypothyroidism, unspecified; Q61.3 Polycystic kidney, unspecified; K31.84 Gastroparesis; I50.9 Heart failure, unspecified; Z88.2 Allergy status to sulfonamides; Z88.8 Allergy status to other drugs, medicaments and biological substances; Z79.899 Other long term (current) drug therapy
CPT/HCPCS: 93971; 96372; 99283; J1885

== ENCOUNTER → 2019-06-09 | Outpatient (CLI) | payer OTHER ==
[~2019-06-09] MED LIST changes: +AMIT50TA PO
[2019-06-09 16:20] LABS: HEMOGLOBIN 12.1 g/dl (12.0-15.5); MEAN CORPUSCULAR HEMOGLOBIN 28.5 pg (27.0-33.0); MEAN CORPUSCULAR HGB CONC 33.6 g/dl (32.0-36.5); MEAN CORPUSCULAR VOLUME 84.9 fl (80.0-96.0); PLATELET COUNT, AUTOMATED 290 10^3/uL (150-450); RED BLOOD COUNT 4.24 10^6/uL (4.00-5.40); WHITE BLOOD COUNT 4.9 10^3/uL (4.0-10.0)
[2019-06-09 16:52] LABS: THYROID STIMULATING HORMONE 1.9 uIU/ML (0.358-3.740)
[2019-06-09 16:54] LABS: ESTRADIOL 67.2 PG/ML; LUTEINIZING HORMONE 4.6 mIU/mL
[2019-06-09 16:55] LABS: FOLLICLE STIMULATING HORMONE 4.5 mIU/mL
== END ==
LOC: M LAB 15:22
PROVIDERS: ATTEND Obstetrics & Gynecology
DX: N93.9 Abnormal uterine and vaginal bleeding, unspecified (principal)

== ENCOUNTER → 2019-06-16 | Outpatient (CLI) | payer OTHER | LOC: M LAB 19:07 | PROVIDERS: ATTEND Obstetrics & Gynecology | DX: N93.9 Abnormal uterine and vaginal bleeding, unspecified (principal) ==

== ENCOUNTER 2019-08-31 06:11 | Inpatient (IN) | payer OTHER ==
[2019-08-31] VITALS (8 sets, daily range): BP systolic 115–135; BP diastolic 60–89
[~2019-08-31] VITALS: Ht 154.9 cm; Wt 86.2 kg
[2019-08-31 06:46] LABS: HEMATOCRIT 39.6 % (36.0-47.0); HEMOGLOBIN 13.3 g/dl (12.0-15.5); MEAN CORPUSCULAR HGB CONC 33.6 g/dl (32.0-36.5); MEAN CORPUSCULAR VOLUME 83.4 fl (80.0-96.0); PLATELET COUNT, AUTOMATED 274 10^3/uL (150-450); RED BLOOD COUNT 4.75 10^6/uL (4.00-5.40); WHITE BLOOD COUNT 4.4 10^3/uL (4.0-10.0)
--- NOTE | 2019-08-31 06:58 | ECGEPIP ---
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
[2019-08-31] MEDS ORDERED: LR 1,000 ML IV ONE (07:00)
[2019-08-31] MEDS ORDERED: LIDOCAINE 2% INJ 100 MG/5 ML SDV (FOR ANES.) As Ordered ONE (07:00)
[2019-08-31] MEDS ORDERED: SCOPOLAMINE 1MG TRANSDERMAL PATCH TOP ONE (07:00)
[2019-08-31] MEDS ORDERED: dexameTHASONE 4 MG/ML 1ML VIAL (J1100) As Ordered ONE (07:01)
[2019-08-31] MEDS ORDERED: propofoL 200 MG/20 ML VIAL As Ordered ONE (07:01)
[2019-08-31] MEDS ORDERED: ROCURONIUM BROMIDE 50 MG/5 ML VIAL As Ordered ONE ×2 (07:01→08:11)
[2019-08-31] MEDS ORDERED: KETOROLAC 60 MG/2 ML VIAL (J1885) As Ordered ONE (07:01)
[2019-08-31] MEDS ORDERED: ONDANSETRON 4MG/2ML VIAL (J2405) As Ordered ONE (07:01)
[2019-08-31] MEDS ORDERED: MIDAZOLAM INJ 2 MG/2 ML VIAL (J2250) As Ordered ONE (07:04)
[2019-08-31] MEDS ORDERED: fentaNYL 250 MCG/5 ML INJECTION (J3010) As Ordered ONE (07:04)
[2019-08-31 07:11] LABS: HCG, SERUM QUALITATIVE NEGATIVE (NEGATIVE)
[2019-08-31] MEDS ORDERED: BUPIVACAINE HCL 0.25% 30 ML VIAL As Ordered ONE (07:14)
[2019-08-31] MEDS ORDERED: ceFAZolin 2 GM/D5W 50 ML IV BAG (J0690 PER 500MG) As Ordered ONE (07:26)
[2019-08-31] MEDS ORDERED: SUCCINYLCHOLINE 100 MG/5 ML SYRINGE (J0330) As Ordered ONE (07:33)
[2019-08-31] MEDS ORDERED: ACETAMINOPHEN 1000MG 100ML IV BTL (OFIRMEV) (J0131 PER 10MG) As Ordered ONE (07:51)
[2019-08-31] MEDS ORDERED: ceFAZolin SOD 2 GM in IV 1 EA IV ONE (08:00)
[2019-08-31] MEDS ORDERED: SUGAMMADEX SODIUM 500 MG/5 ML VIAL (BRIDION) As Ordered ONE (08:03)
[2019-08-31] MEDS ORDERED: GLYCOPYRROLATE INJ 0.2 MG/ML 2 ML VIAL As Ordered ONE (09:19)
[2019-08-31] MEDS ORDERED: HYDROmorphone HCL 2 MG/ML 1ML VIAL (J1170) As Ordered ONE (09:21)
[2019-08-31] MEDS ORDERED: ONDANSETRON 4MG/2ML VIAL (J2405) IV PRN ×2 (10:30→10:45)
[2019-08-31] MEDS ORDERED: PERCOCET 5MG/325MG TAB PO PRN (10:30)
[2019-08-31] MEDS ORDERED: KETOROLAC 30 MG/ML VIAL (J1885) IV PRN (10:30)
[2019-08-31] MEDS ORDERED: fentaNYL 100 MCG/2 ML INJECTION (J3010) As Ordered ONE (10:38)
[2019-08-31] MEDS: fentaNYL 100 MCG/2 ML INJECTION (J3010) IV PRN ×4 (10:40→10:55)
[2019-08-31] MEDS ORDERED: LR 1,000 ML IV SCH (10:45)
[2019-08-31] MEDS: PERCOCET 5MG/325MG TAB PO PRN ×2 (12:43→20:48)
--- NOTE | 2019-08-31 13:23 | IPNPDOC ---
Text Note Date of Service The patient was seen on 08/31/19. NOTE POD 0 Ayesha is a 39yo F w/AUB/HMB/IMB and dysmenorrhea doing well POD 0 s/p u ncomplicated LAVH, bilateral salpingectomy and cystoscopy. She has been drinking water with no nausea/emesis. Has a bit of a dry cough since surgery likely from intubation. Soreness is mostly lower pelvis/vagina- has an ice pack on perineum currently. No urge to void yet, downing was removed at the end of the case. Scant vaginal bleeding. No f/c/CP/SOB. Vitals wnl, afebrile General: WDWN, resting comfortably in bed Abdomen: soft, appropriately tender to palpation with no rebound/guarding, non-distended Extremities: SCDs on and functioning Labs: pre-op H/H: 13.3/39.6 Assessment: Ayesha is a 39yo F w/AUB/HMB/IMB and dysmenorrhea doing well POD 0 s/p uncomplicated LAVH, bilateral salpingectomy and cystoscopy. Vitals wnl, benign exam, pain overall well controlled. Hemodynamically stable with no e/o infection. Plan: -routine post-op care -vitals q4hr -due to void 6hr after surgery, straight cath if unable to urinate -encourage PO hydration, saline lock IV, regular diet -SCDs on while in bed, encourage ambulation and use of IS -toradol and percocet for pain, also K Pad -Cepacol spray for throat soreness/cough -CBC in the morning -If meeting all milestones, may be discharged home tomorrow MD PARAG Regalado Fishbone, I+O Avni TUTTLE I+O Laboratory Tests 08/31/19 06:28 Vital Signs Date Time Temp Pulse Resp B/P (MAP) Pulse Ox O2 Delivery O2 Flow Rate FiO2 08/31/19 12:43 98.9 106 16 134/89 97 Room Air 2.0 Shauna James MD Aug 31, 2019 13:23
[2019-08-31] MEDS ORDERED: BENZONATATE 100 MG CAP PO PRN (13:30)
[2019-08-31] MEDS: SLF 3 ML SYR IV SCH ×2 (14:00→22:00)
[2019-08-31] MEDS ORDERED: CHLORASEPTIC SPRAY MT PRN (14:00)
[2019-08-31] MEDS ORDERED: SLF 3 ML SYR IV PRN (15:00)
[2019-08-31] MEDS ORDERED: diphenhydrAMINE 25 MG CAP PO ONE (18:00)
[2019-08-31] MEDS: SENOKOT S TAB PO SCH (20:47)
--- NOTE | 2019-08-31 22:08 | RO ---
DATE OF PROCEDURE: 08/31/2019 INDICATION FOR OPERATION: Ayesha is a 39-year-old G3, P3 with a history of abnormal uterine bleeding/heavy menstrual bleeding/intermenstrual bleeding, as well as dysmenorrhea. We discussed all options for treatment of her symptoms, and she desired definitive management after having a normal workup with pelvic ultrasound, endometrial biopsy, thyroid testing. PREOPERATIVE DIAGNOSIS: Abnormal uterine bleeding, heavy menstrual bleeding, intermenstrual bleeding, dysmenorrhea. POSTOPERATIVE DIAGNOSIS: Abnormal uterine bleeding, heavy menstrual bleeding, intermenstrual bleeding, dysmenorrhea. MATERIAL FORWARDED TO THE LAB FOR EXAMINATION: Uterus with cervix and bilateral Fallopian tubes with Filshie clips. PROCEDURE PERFORMED: Laparoscopic-assisted vaginal hysterectomy, cystoscopy and bilateral salpingectomy. SURGEON: Shauna James MD TURNING AND BEADING MACHINE OPERATOR Juan Alberto Deleon DO CLINICAL SERVICE: Gynecology. DESCRIPTION OF FINDINGS: Normal appearing uterus, somewhat congested. Ovaries were normal in appearance. The fallopian tubes were interrupted bilaterally with Filshie clips. Liver edge was normal in appearance. She had prior cholecystectomy and appendectomy, so those organs were surgically absent. At the end of the case, there was hemostasis noted along the vaginal cuff and postoperative cystoscopy showed jets from both ureteral ostia with intact bladder dome. INFECTION CLASSIFICATION: 2. ESTIMATED BLOOD LOSS: 150 mL. IV FLUIDS: 1100 mL of lactated Ringer. URINE OUTPUT: 300 mL of clear yellow urine. DESCRIPTION OF OPERATION: After obtaining consent, the patient was taken to the operating room. Bilateral sequential compression devices (SCDs) were placed. She received general endotracheal anesthesia, and she was prepped and draped in normal sterile fashion in low lithotomy position. She was given 2 grams of IV Ancef prophylactically, and a time-out was performed to confirm patient name, date of , procedure and indication. The team was in agreement. Beal catheter was placed. A bivalve speculum was placed in the vagina, and the anterior lip of the cervix was grasped with a single-tooth tenaculum. The uterus sounded to 9 cm, and the cervix was sequentially dilated with Hanks dilators. A VCare uterine manipulator was then inserted into the uterus after a [id number] stitch was placed on the anterior lip of the cervix using #0 Vicryl suture and the VCare was tied down to the suture. The bivalve speculum was removed from the vagina as well as the tenaculum. Gloves were changed and attention was turned to the abdominal portion of the case. A 5 mm incision was made in the infraumbilical fold with a scalpel after anesthetizing with 0.25% Marcaine. An Optiview trocar was then used and intraperitoneal placement was confirmed, pneumoperitoneum was achieved using carbon dioxide gas. Inspection below the area of entry revealed no injury. We then placed two lateral ports in the right and left lower quadrants, also 5 mm in size, after anesthetizing with 0.25% Marcaine. We then began our inspection of the abdomen after the patient was placed in Trendelenburg position. Liver edge was normal in appearance, gallbladder surgically absent, appendix surgically absent. The uterus itself was overall normal, though somewhat congested in appearance with a lot of vascularity. Ovaries were normal in appearance. Posterior cul-de-sac normal in appearance with some simple free fluid, scant in amount. The fallopian tubes bilaterally were interrupted with Filshie clip. The LigaSure was used to undermine the fallopian tubes and cauterize and cut. Those then were removed completely at the cornual portion and placed into the posterior cul-de-sac to be taken out later when the uterus was removed. Next, the left broad ligament was transected using the LigaSure. We looked for the left ureter but were not to see it given some deposition of adipose in that area. The utero-ovarian ligament was transected using the LigaSure and then the anterior leaf of the broad ligament was opened, and we attempted to skeletonize the uterine arteries. This was done with the LigaSure down to the level of the external os where we could palpate the vaginal cuff of the uterine manipulator. At that time, we also created the left side portion of the bladder flap using the LigaSure and using traction, and then all of that procedure was then done again on the right side. Hemostasis was noted along the pedicles and in all the areas of the pelvis. At that point, we used the L hook to create our colpotomy posteriorly first and then anteriorly. We had difficulty initiating the colpotomy so Dr. Deleon went down and ensured that the cuff of the VCare was snug up against the cervix, and then at that time we were able to see the big bulge from the colpotomy cup and were then able to much more easily form that colpotomy. All of the small periphery vessels were completely ligated as we performed the colpotomy, and then once the uterus and cervix were completely free, it was pulled out from below and handed off as specimen. The right and left fallopian tubes with the Filshie clips were also handed off to be placed with the specimen. Inspection in the pelvis revealed hemostasis, so then we turned our attention to the repair of the vaginal cuff. The patient was placed in a somewhat high lithotomy position, short weighted speculum was placed in the vagina with good visualization of the vaginal cuff, and the vaginal cuff was sutured vertically in a running locking suture using #0 Vicryl, attempting to incorporate peritoneum with the vaginal mucosa for a good closure. And then we did some irrigation with normal saline of the vagina and removed all instruments. Inspection revealed nothing retained in the vagina. We then performed cystoscopy in the usual fashion. We followed bilateral ureteral jets, and bubble at the bladder dome with no defects. No sutures noted. Cystoscope was removed from the urethra and the bladder was drained. I did not replace the Beal as she will be going to the lei without a Beal in hopes that she will be able to urinate within the next 6 hours from end of procedure. We then returned to the abdomen and did some slight irrigation and suctioning, noted hemostasis within the pelvis. I did apply Mary Jane to the vaginal cuff area and again noted hemostasis. At that point, we removed all of the instruments from the abdomen and let out the pneumoperitoneum. The port sites were reapproximated using #4-0 Monocryl and Dermabond. Hemostasis was noted for all of the abdominal incisions. The patient was taken out of lithotomy position. All counts were correct times two. The patient was awakened from general anesthesia, and she was taken to the recovery room in stable condition.
[2019-09-01] VITALS (7 sets, daily range): BP systolic 116–149; BP diastolic 68–84
[2019-09-01] MEDS: PERCOCET 5MG/325MG TAB PO PRN ×2 (04:02→22:33)
[2019-09-01 07:16] LABS: BASO % 0.7 % (0.0-1.0); EOS # 0.2 10^3/uL (0.0-0.5); EOS % 3.2 % (0.0-3.0); HEMATOCRIT 30.8 % (36.0-47.0); LYMPH # 1.2 10^3/uL (1.5-5.0); LYMPH % 21.8 % (24.0-44.0); MEAN CORPUSCULAR HEMOGLOBIN 27.1 pg (27.0-33.0); MEAN CORPUSCULAR HGB CONC 31.8 g/dl (32.0-36.5); MEAN CORPUSCULAR VOLUME 85.3 fl (80.0-96.0); MONO # 0.4 10^3/uL (0.0-0.8); MONO % 6.5 % (0.0-5.0); NEUTROPHILS # 3.8 10^3/uL (1.5-8.5); NEUTROPHILS % 67.3 % (36.0-66.0); PLATELET COUNT, AUTOMATED 214 10^3/uL (150-450); RED BLOOD COUNT 3.61 10^6/uL (4.00-5.40); WHITE BLOOD COUNT 5.7 10^3/uL (4.0-10.0)
[2019-09-01 07:25] LABS: HEMOGLOBIN 9.8 g/dl (12.0-15.5)
[2019-09-01] MEDS ORDERED: diphenhydrAMINE 25 MG CAP PO ONE (08:15)
--- NOTE | 2019-09-01 08:53 | IPNPDOC ---
Text Note Date of Service The patient was seen on 09/01/19. NOTE POD 1 Ayesha is a 39yo F w/AUB/HMB/IMB and dysmenorrhea doing well POD 0 s/p u ncomplicated LAVH, bilateral salpingectomy and cystoscopy. Uneventful night. However, she doesn't have much urge to void. She notes no urination overnight and was only about 150ml when she finally voided this morning. She has been drinking fluids, IVF was d/c'ed last night around 1900. Pain overall well controlled. She tolerated small dinner last night without nausea/emesis. Has appetite this morning. Ambulating without lightheadedness/dizziness. Still has a bit of a dry cough since surgery likely from intubation, and cheeks feel itchy. Scant vaginal bleeding. No f/c/CP/SOB. Vitals wnl, afebrile General: WDWN, resting comfortably in bed Abdomen: soft, appropriately tender to palpation with no rebound/guarding, non- distended. Trocar incisions are covered with dermabond, no erythema/indura tion/drainage and they are well reapproximated Extremities: trace edema of BLE, no pain with palpation of calves I/O's: 150ml UOP over 12hr last night Bladder scan at bedside just now: 450ml. I asked Ayesha to try to void after this, but she was unable to. Labs: pre-op H/H: 13.3/39.6 post-op H/H: 9.8/30.8 Assessment: Ayesha is a 39yo F w/AUB/HMB/IMB and dysmenorrhea on POD 1 s/p uncomplicated LAVH, bilateral salpingectomy and cystoscopy. Issue this morning with urinary retention: inadequate UOP and patient has no urge to void despite bladder scan showing 450ml in bladder. Vitals wnl, benign exam, pain overall well controlled. Hemodynamically stable with no e/o infection. Plan: -routine post-op care -vitals q4hr -replace downing catheter for bladder rest for 12hr vs 24hr -encourage PO hydration, saline lock IV, regular diet -SCDs on while in bed, encourage ambulation and use of IS -ibuprofen and percocet for pain, also K Pad -Cepacol spray and tessalon perles for throat soreness/cough -Benadryl prn itching Dr. Shauna James MD VS,Avni, I+O VS, Avni I+O Laboratory Tests 09/01/19 06:53 Vital Signs Date Time Temp Pulse Resp B/P (MAP) Pulse Ox O2 Delivery O2 Flow Rate FiO2 09/01/19 04:02 18 09/01/19 04:00 97.7 84 138/77 (97) 99 Room Air 08/31/19 12:43 2.0 I&O- Last 24 Hours up to 6 AM 09/01/19 06:00 Intake Total 1820 ml Output Total 800 ml Balance 1020 ml Shauna James MD Sep 01, 2019 08:53
[2019-09-01] MEDS ORDERED: diphenhydrAMINE 25 MG CAP PO PRN (09:00)
[2019-09-01] MEDS: SENOKOT S TAB PO SCH ×2 (09:22→20:08)
[2019-09-01] MEDS: SLF 3 ML SYR IV SCH ×3 (09:23→20:08)
[2019-09-01] MEDS: IBUPROFEN 800 MG TAB PO PRN (16:16)
[2019-09-01] MEDS: guaiFENesin ER 600 MG TAB PO SCH (20:08)
[2019-09-02] VITALS: BP 118/67
[2019-09-02 04:00] VITALS: BP 135/65
[2019-09-02] MEDS: SLF 3 ML SYR IV SCH (06:17)
[2019-09-02 08:00] VITALS: BP 130/78
[2019-09-02] MEDS: SENOKOT S TAB PO SCH (08:21)
[2019-09-02] MEDS: guaiFENesin ER 600 MG TAB PO SCH (08:39)
--- NOTE | 2019-09-02 09:04 | IPNPDOC ---
Text Note Date of Service The patient was seen on 09/02/19. NOTE POD 2 Ayesha is a 39yo F w/AUB/HMB/IMB and dysmenorrhea doing well POD 2 s/p uncomplicated LAVH, bilateral salpingectomy and cystoscopy. She was kept an extra night for urinary retention (no urge to void yesterday with bladder scan showing 450ml in bladder, so downing was replaced and she had bladder rest). Downing was removed at 0600 this morning and she has no urge to void just yet. She has been drinking fluids. Tolerating regular diet. Pain overall well controlled. Ambulating without lightheadedness/dizziness. Scant vaginal bleeding. No f/c/CP/SOB. Vitals wnl, afebrile General: WDWN, resting comfortably in bed Abdomen: soft, appropriately tender to palpation with no rebound/guarding, non- distended. Trocar incisions are covered with dermabond, no erythema/indurati on/drainage and they are well reapproximated Extremities: trace edema of BLE, no pain with palpation of calves I/O's: 50ml/hr UOP Labs: pre-op H/H: 13.3/39.6 post-op H/H: 9.8/30.8 Assessment: Ayesha is a 39yo F w/AUB/HMB/IMB and dysmenorrhea on POD 2 s/p uncomplicated LAVH, bilateral salpingectomy and cystoscopy. Kept an extra night for urinary retention, given bladder rest with downing replaced. Downing removed at 0600 this morning and awaiting due to void. Vitals wnl, benign exam, pain overall well controlled. Hemodynamically stable with no e/o infection. Plan: -routine post-op care -vitals q4hr -due to void at noon today. if unable to void, will replace downing and send her home with leg bag after training. -encourage PO hydration with regular diet -encourage ambulation and use of IS -ibuprofen and percocet for pain Dr. Shauna James MD VS,Avni, I+O VS, Avni, I+O Vital Signs Date Time Temp Pulse Resp B/P (MAP) Pulse Ox O2 Delivery O2 Flow Rate FiO2 09/02/19 04:00 97.5 77 17 135/65 (88) 100 Room Air 08/31/19 12:43 2.0 I&O- Last 24 Hours up to 6 AM 09/02/19 06:00 Intake Total 3720 ml Output Total 2175 ml Balance 1545 ml Shauna James MD Sep 02, 2019 09:04
[2019-09-02 12:00] VITALS: BP 139/86
--- NOTE | 2019-09-02 12:36 | IPNPDOC ---
Text Note Date of Service The patient was seen on 09/02/19. NOTE I was called by Jimenez regarding due to void not being met. I requested bladder scan and there was 590ml urine in the bladder with patient still unable to void and having no urge to void. I instructed downing catheter to be placed and patient to have leg bag training. She can be discharged home after that. She has appt with me on Aug at 1330 for retrograde voiding trial to see if we can remove downing at that time. K Erika VS,Avni, I+O VS, Avni, I+O Vital Signs Date Time Temp Pulse Resp B/P (MAP) Pulse Ox O2 Delivery O2 Flow Rate FiO2 09/02/19 08:00 97.0 70 14 130/78 (95) 99 Room Air 08/31/19 12:43 2.0 I&O- Last 24 Hours up to 6 AM 09/02/19 06:00 Intake Total 3720 ml Output Total 2175 ml Balance 1545 ml Shauna James MD Sep 02, 2019 12:36
[2019-09-02] MEDS ORDERED: IBUP80TA PO (12:39)
[2019-09-02] MEDS ORDERED: PERCOCET PO (12:39)
[2019-09-02] MEDS ORDERED: SENN-52 PO (12:39)
--- NOTE | 2019-09-02 13:05 | DS.PDOC ---
Discharge Summary General Date of Admission Aug 31, 2019 at 06:11 Date of Discharge Sep 02, 2019 Attending Physician: Shauna James MD Discharge Summary PROCEDURES PERFORMED DURING STAY: LAVH, bilateral salpingectomy, cystoscopy ADMITTING DIAGNOSES: 1. Abnormal uterine bleeding/heavy menstrual bleeding/inter-menstrual bleeding and dysmenorrhea DISCHARGE DIAGNOSES: 1. Abnormal uterine bleeding/heavy menstrual bleeding/inter-menstrual bleeding and dysmenorrhea 2. Post-operative urinary retention COMPLICATIONS/CHIEF COMPLAINT: Abnormal Uterine Bleeding. HISTORY OF PRESENT ILLNESS/HOSPITAL COURSE: Ayesha is a 39yo F w/AUB/HMB/IMB and dysmenorrhea on POD 2 s/p uncomplicated LAVH, bilateral salpingectomy and cystoscopy. She was kept an extra night for urinary retention, given bladder rest with downing replaced, but still not able to meet due to void with >500ml in her bladder. So she will be discharged home with indwelling downing with plan for bladder rest for 5 days. Vitals wnl, benign exam, pain overall well controlled. At time of discharge she is hemodynamically stable with no e/o infection. DISCHARGE MEDICATIONS: Please see below. ALLERGIES: Please see below. PHYSICAL EXAMINATION ON DISCHARGE: Vitals wnl, afebrile General: WDWN, resting comfortably in bed Abdomen: soft, appropriately tender to palpation with no rebound/guarding, non- distended. Trocar incisions are covered with dermabond, no e rythema/induration/drainage and they are well reapproximated Extremities: trace edema of BLE, no pain with palpation of calves LABORATORY DATA: Please see below. pre-op H/H: 13.3/39.6 post-op H/H: 9.8/30.8 ACTIVITY: complete vaginal rest for 6 weeks, no heavy lifting greater than weight of full milk jug DIET: regular DISPOSITION: home DISCHARGE PLAN/INSTRUCTIONS: -Discharge to home -Percocet and motrin as needed for pain control -patient is being discharged with downing catheter to treat urinary retention and will care for downing as instructed by nurse prior to discharge -return precautions discussed regarding fevers/chills, increasing abdominal pain, heavy vaginal bleeding, issues regarding urine output to downing bag, signs of infection of her abdominal incisions such as redness/drainage, foul smelling vaginal discharge, or anything else that concerns her -follow up with Dr. James in clinic on Aug at 1330 DISCHARGE CONDITION: Stable TIME SPENT ON DISCHARGE: Greater than [address] Shauna James MD Vital Signs/I&Os Vital Signs Date Time Temp Pulse Resp B/P (MAP) Pulse Ox O2 Delivery O2 Flow Rate FiO2 09/02/19 08:00 97.0 70 14 130/78 (95) 99 Room Air 08/31/19 12:43 2.0 I&O- Last 24 Hours up to 6 AM 09/02/19 06:00 Intake Total 3720 ml Output Total 2175 ml Balance 1545 ml Discharge Medications Scheduled Levothyroxine Sodium (Synthroid) 75 Mcg Tab, 37.5 MCG PO DAILY, (Reported) Losartan/Hydrochlorothiazide (Hyzaar 50-12.5 Tablet) 1 Tab Tab, 1 TAB PO DAILY, (Reported) Sennosides/Docusate Sodium (Senna Plus Tablet) 1 Each Tablet, 1 TAB PO BID Scheduled PRN Ibuprofen (Ibuprofen) 800 Mg Tablet, 800 MG PO Q8HP PRN for MODERATE PAIN (PS 5- 7) Ondansetron HCl (Zofran) 4 Mg Tablet, 4 MG PO Q6HP PRN for NAUSEA OR VOMITING, (Reported) Oxycodone/Acetaminophen (Oxycodone-Acetaminophen 5-325) 1 Each Tablet, 2 TAB PO Q6H PRN for SEVERE PAIN (PS 8-10) Allergies Coded Allergies: sulfamethoxazole (Verified Adverse Reaction, Intermediate, MAKEDA, 08/31/19) occurred previously after 2 doses trimethoprim (Verified Adverse Reaction, Intermediate, MAKEDA, 08/31/19) occurred previously after 2 doses Shauna James MD Sep 02, 2019 12:52
[2019-09-02] MEDS: IBUPROFEN 800 MG TAB PO PRN (13:25)
== END 2019-09-02 13:50 | disposition home or self-care (01) | DRG 743 ==
LOC: M OR 06:11 → M PED 11:56
PROVIDERS: ADMIT Obstetrics & Gynecology; ATTEND Obstetrics & Gynecology
PROC: 0UT74ZZ Resection of Bilateral Fallopian Tubes, Percutaneous Endoscopic Approach (ICD-10-PCS; 2019-08-31)
PROC: 0TJB8ZZ Inspection of Bladder, Via Natural or Artificial Opening Endoscopic (ICD-10-PCS; 2019-08-31)
PROC: 0UT94ZZ Resection of Uterus, Percutaneous Endoscopic Approach (ICD-10-PCS; principal; 2019-08-31 07:30)
PROC: 0UTC4ZZ Resection of Cervix, Percutaneous Endoscopic Approach (ICD-10-PCS; 2019-08-31 07:30)
DX: N92.0 Excessive and frequent menstruation with regular cycle (principal); N94.6 Dysmenorrhea, unspecified; Z90.49 Acquired absence of other specified parts of digestive tract; R33.9 Retention of urine, unspecified; N93.9 Abnormal uterine and vaginal bleeding, unspecified; I10 Essential (primary) hypertension; E03.9 Hypothyroidism, unspecified; E66.9 Obesity, unspecified; Z68.36 Body mass index [BMI] 36.0-36.9, adult; Z79.899 Other long term (current) drug therapy

== ENCOUNTER 2019-09-04 13:48 | Emergency (ER) | payer OTHER ==
[~2019-09-04] VITALS: Ht 154.9 cm; Wt 87.1 kg
[~2019-09-04 13:48] MED LIST changes: +PERCOCET PO; +SENN-52 PO
[2019-09-04 15:01] LABS: AMORPHOUS SEDIMENT SMALL (NEGATIVE); APPEARANCE, URINE HAZY (CLEAR); BACTERIA, URINE AUTO NEGATIVE (NEGATIVE); BILIRUBIN, URINE AUTO NEGATIVE (NEGATIVE); BLOOD, URINE BLOOD 1+ (NEGATIVE); COLOR, URINE YELLOW (YELLOW); GLUCOSE, URINE (UA) AUTO NEGATIVE (NEGATIVE); KETONE, URINE AUTO NEGATIVE (NEGATIVE); LEUKOCYTE ESTERASE, URINE AUTO NEGATIVE (NEGATIVE); NITRITE, URINE AUTO NEGATIVE (NEGATIVE); PROTEIN, URINE AUTO 1+ mg/dL (NEGATIVE); RBC, URINE AUTO 38 /HPF (0-3); SPECIFIC GRAVITY URINE AUTO 1.015 (1.002-1.035); SQUAMOUS EPITHELIAL CELL UR AU 1 /HPF (0-6); WBC, URINE AUTO 2 /HPF (0-3)
[2019-09-04 15:25] LABS: BASO % 0.6 % (0.0-1.0); EOS # 0.3 10^3/uL (0.0-0.5); EOS % 6.7 % (0.0-3.0); HEMATOCRIT 35.4 % (36.0-47.0); HEMOGLOBIN 11.8 g/dl (12.0-15.5); LYMPH # 1.1 10^3/uL (1.5-5.0); LYMPH % 24.1 % (24.0-44.0); MEAN CORPUSCULAR HGB CONC 33.3 g/dl (32.0-36.5); MEAN CORPUSCULAR VOLUME 83.9 fl (80.0-96.0); MONO # 0.3 10^3/uL (0.0-0.8); MONO % 6.9 % (0.0-5.0); NEUTROPHILS # 2.9 10^3/uL (1.5-8.5); NEUTROPHILS % 61.5 % (36.0-66.0); PLATELET COUNT, AUTOMATED 285 10^3/uL (150-450); RED BLOOD COUNT 4.22 10^6/uL (4.00-5.40); WHITE BLOOD COUNT 4.7 10^3/uL (4.0-10.0)
[2019-09-04 15:29] LABS: BLOOD UREA NITROGEN 12 MG/DL (7-18); CARBON DIOXIDE LEVEL 25 MEQ/L (21-32); CHLORIDE LEVEL 109 MEQ/L (98-107); CREATININE FOR GFR 0.94 MG/DL (0.55-1.30); GLOMERULAR FILTRATION RATE > 60.0 (>60); GLUCOSE, FASTING 97 MG/DL (70-100); POTASSIUM SERUM 4.4 MEQ/L (3.5-5.1); SODIUM LEVEL 140 MEQ/L (136-145)
[2019-09-04] MEDS ORDERED: NS 1,000 ML IV ONE (15:30)
[2019-09-04 16:44] VITALS: BP 135/76
== END 2019-09-04 16:45 | disposition home or self-care (01) ==
LOC: M ED 13:48
DX: N30.90 Cystitis, unspecified without hematuria (principal); T83.511A Infection and inflammatory reaction due to indwelling urethral catheter, initial encounter; X58.XXXA Exposure to other specified factors, initial encounter; Y92.89 Other specified places as the place of occurrence of the external cause; I10 Essential (primary) hypertension; Z79.899 Other long term (current) drug therapy; Z88.2 Allergy status to sulfonamides; Z88.8 Allergy status to other drugs, medicaments and biological substances

== ENCOUNTER 2019-09-04 17:46 | Emergency (ER) | payer OTHER ==
[~2019-09-04] VITALS: Ht 154.9 cm; Wt 77.2 kg
[2019-09-04] MEDS ORDERED: ONDANSETRON 4MG/2ML VIAL (J2405) IV ONE (19:30)
[2019-09-04] MEDS ORDERED: NS 1,000 ML IV ONE (19:30)
[2019-09-04] MEDS ORDERED: diphenhydrAMINE INJ 50MG/ML VIAL (J1200) As Ordered ONE (19:33)
[2019-09-04] MEDS ORDERED: ISOVUE-370 76% 100ML VIAL (Q9967) As Ordered ONE (19:36)
[2019-09-04 19:41] LABS: BASO % 0.5 % (0.0-1.0); EOS # 0.3 10^3/uL (0.0-0.5); HEMOGLOBIN 12.2 g/dl (12.0-15.5); LYMPH % 16.7 % (24.0-44.0); MEAN CORPUSCULAR HEMOGLOBIN 27.2 pg (27.0-33.0); MEAN CORPUSCULAR HGB CONC 32.1 g/dl (32.0-36.5); MEAN CORPUSCULAR VOLUME 84.6 fl (80.0-96.0); MONO # 0.3 10^3/uL (0.0-0.8); MONO % 5.3 % (0.0-5.0); NEUTROPHILS # 4.5 10^3/uL (1.5-8.5); NEUTROPHILS % 72.3 % (36.0-66.0); PLATELET COUNT, AUTOMATED 288 10^3/uL (150-450); RED BLOOD COUNT 4.49 10^6/uL (4.00-5.40); WHITE BLOOD COUNT 6.2 10^3/uL (4.0-10.0)
[2019-09-04 19:52] LABS: INR 0.99; PROTHROMBIN TIME 12.8 SECONDS (11.8-14.0)
[2019-09-04 19:53] LABS: PARTIAL THROMBOPLASTIN TIME 29.7 SECONDS (25.0-38.4)
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
[2019-09-04 20:09] LABS: ALBUMIN 3.8 GM/DL (3.2-5.2); ALT/SGPT 196 U/L (12-78); BILIRUBIN,DIRECT 0.2 MG/DL (0.0-0.2); BILIRUBIN,TOTAL 0.8 MG/DL (0.2-1.0); BLOOD UREA NITROGEN 9 MG/DL (7-18); CALCIUM LEVEL 8.7 MG/DL (8.5-10.1); CARBON DIOXIDE LEVEL 25 MEQ/L (21-32); CHLORIDE LEVEL 109 MEQ/L (98-107); CK-MB VALUE MASS < 1.0 NG/ML (<3.6); CPK CREATINE PHOSPHOKINASE 57 U/L (26-192); CREATININE FOR GFR 0.89 MG/DL (0.55-1.30); GLOMERULAR FILTRATION RATE > 60.0 (>60); GLUCOSE, FASTING 94 MG/DL (70-100); MB/CK RELATIVE INDEX 1.75 (< OR =4); POTASSIUM SERUM 3.9 MEQ/L (3.5-5.1); SODIUM LEVEL 141 MEQ/L (136-145); TOTAL PROTEIN 7.3 GM/DL (6.4-8.2); TROPONIN I < 0.02 NG/ML (< 0.10)
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
[2019-09-04] MEDS: MORPHINE 4 MG/ML 1ML VIAL/SYRINGE (J2270) IV PRN ×2 (20:11→20:44)
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
[2019-09-04 21:52] VITALS: BP 137/75
== END 2019-09-04 21:52 | disposition home or self-care (01) ==
LOC: M ED 17:46 → EDBD 17:46 → EDUNIT# 17:46 → M ED 21:52
DX: R10.9 Unspecified abdominal pain (principal); R20.2 Paresthesia of skin; I10 Essential (primary) hypertension; E03.9 Hypothyroidism, unspecified; Z79.899 Other long term (current) drug therapy; Z88.2 Allergy status to sulfonamides; Z88.8 Allergy status to other drugs, medicaments and biological substances
CPT/HCPCS: 36415; 70450; 71260; 72125; 74177; 80048; 80076; 82550; 82553; 84484; 85025; 85610; 85730; 93041; 96361; 96374; 96375; 96376; 99285; J2270; J2405; Q9967

== ENCOUNTER 2019-12-07 01:43 | Emergency (ER) | payer OTHER ==
[~2019-12-07] VITALS: Ht 154.9 cm; Wt 77.3 kg
[2019-12-07] MEDS ORDERED: cloNIDine 0.2 MG TAB PO ONE ×2 (02:15→03:00)
--- NOTE | 2019-12-07 02:32 | REPVR ---
PROCEDURE INFORMATION: Exam: CT Head Without Contrast Exam date and time: 12/07/2019 2:16 AM Age: 39 years old Clinical indication: Pain; Headache TECHNIQUE: Imaging protocol: Computed tomography of the head without contrast. Radiation optimization: All CT scans at this facility use at least one of these dose optimization techniques: automated exposure control; mA and/or kV adjustment per patient size (includes targeted exams where dose is matched to clinical indication); or iterative reconstruction. COMPARISON: CT Head without contrast 09/04/2019 7:39 PM FINDINGS: Brain: There is no evidence for an acute large vessel territorial infarct, intracranial hemorrhage, mass, mass effect, or herniation. The cortical gyration pattern, basal ganglia, thalami, brainstem, and cerebellum are normal in appearance. Ventricles: Normal. No ventriculomegaly. Bones/joints: Unremarkable. No acute fracture. Sinuses: Visualized sinuses are well-aerated. No air-fluid levels. Mastoid air cells: Visualized mastoid air cells are well-aerated. Soft tissues: Unremarkable. IMPRESSION: No acute intracranial abnormality. Electronically signed by: Vito Villarreal On 12/07/2019 02:31:53 AM
[2019-12-07 02:34] LABS: BASO % 0.6 % (0.0-1.0); EOS # 0.1 10^3/uL (0.0-0.5); EOS % 2.9 % (0.0-3.0); HEMATOCRIT 34.8 % (36.0-47.0); HEMOGLOBIN 11.7 g/dl (12.0-15.5); LYMPH % 40.2 % (24.0-44.0); MEAN CORPUSCULAR HEMOGLOBIN 27.6 pg (27.0-33.0); MEAN CORPUSCULAR HGB CONC 33.6 g/dl (32.0-36.5); MEAN CORPUSCULAR VOLUME 82.1 fl (80.0-96.0); MONO # 0.4 10^3/uL (0.0-0.8); MONO % 7.6 % (0.0-5.0); NEUTROPHILS # 2.4 10^3/uL (1.5-8.5); NEUTROPHILS % 48.5 % (36.0-66.0); PLATELET COUNT, AUTOMATED 248 10^3/uL (150-450); RED BLOOD COUNT 4.24 10^6/uL (4.00-5.40); WHITE BLOOD COUNT 4.9 10^3/uL (4.0-10.0)
[2019-12-07] MEDS ORDERED: cloNIDine 0.2 MG TAB As Ordered ONE (02:54)
[2019-12-07 02:58] VITALS: BP 204/89
[2019-12-07 03:07] LABS: BLOOD UREA NITROGEN 14 MG/DL (7-18); CALCIUM LEVEL 8.6 MG/DL (8.5-10.1); CARBON DIOXIDE LEVEL 27 MEQ/L (21-32); CHLORIDE LEVEL 107 MEQ/L (98-107); CREATININE FOR GFR 0.93 MG/DL (0.55-1.30); GLOMERULAR FILTRATION RATE > 60.0 (>60); GLUCOSE, FASTING 91 MG/DL (70-100); POTASSIUM SERUM 3.4 MEQ/L (3.5-5.1); SODIUM LEVEL 141 MEQ/L (136-145)
[2019-12-07] MEDS ORDERED: ISOVUE-370 76% 100ML VIAL As Ordered ONE (03:39)
--- NOTE | 2019-12-07 04:03 | REP ---
Clinical: Hypertension and chest pain . Comparison: 01/26/2019 . Findings: The mediastinum and cardiac silhouette are stable and within normal limits for portable technique. The lung garcia are clear without acute focal consolidation, effusion, or pneumothorax. Skeletal structures are intact. Impression: No acute cardiopulmonary process appreciated. No focal consolidation or effusion. Electronically Signed by Michael Munoz MD 12/07/2019 03:54 A
--- NOTE | 2019-12-07 04:07 | REPVR ---
PROCEDURE INFORMATION: Exam: CT Angiography Chest With Contrast Exam date and time: 12/07/2019 3:31 AM Age: 39 years old Clinical indication: Other: ? Infiltrate; Additional info: HTN, dizz, retrocard infiltrate ? TECHNIQUE: Imaging protocol: Computed tomographic angiography of the chest with intravenous contrast. 3D rendering: MIP and/or 3D reconstructed images were created by the technologist. Radiation optimization: All CT scans at this facility use at least one of these dose optimization techniques: automated exposure control; mA and/or kV adjustment per patient size (includes targeted exams where dose is matched to clinical indication); or iterative reconstruction. Contrast material: ISO; Contrast volume: 75 ml; Contrast route: AC; COMPARISON: CT ANGIO CHEST 08/31/2018 3:33 PM FINDINGS: Pulmonary arteries: The main pulmonary artery measures 28 mm. No pulmonary embolism is identified. Aorta: The ascending thoracic aorta measures 26 mm. Lungs: Minimal dependent atelectasis. Pleural space: Unremarkable. No pneumothorax. No pleural effusion. Heart: Unremarkable. No cardiomegaly. No pericardial effusion. Mediastinum: There is soft tissue conforming to the anterior mediastinum consistent with residual thymic tissue. Lymph nodes: Borderline bilateral hilar nodes which are nonspecific. There are some mediastinal nodes which are within normal limits but increased since the prior study. Gallbladder and bile ducts: Status post cholecystectomy. Bones/joints: Unremarkable. No acute fracture. Soft tissues: Unremarkable. IMPRESSION: 1. Borderline bilateral hilar adenopathy which is new since 08/31/2018 and is nonspecific. Slightly increased mediastinal nodes are present as well but are within normal limits. 2. Otherwise negative CTA chest. No pulmonary embolism is identified. Electronically signed by: Fracisco Brvao On 12/07/2019 04:07:35 AM
[2019-12-07] MEDS ORDERED: MECLIZINE 25 MG TABLET PO ONE (04:15)
[2019-12-07 04:59] VITALS: BP 128/82
--- NOTE | 2019-12-08 16:32 | ECGEPIP ---
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
== END 2019-12-07 05:10 | disposition home or self-care (01) ==
LOC: M ED 01:43
DX: I10 Essential (primary) hypertension (principal); Z88.2 Allergy status to sulfonamides; Z88.1 Allergy status to other antibiotic agents
CPT/HCPCS: 36415; 70450; 71045; 71275; 80048; 85025; 93005; 99284; Q9967

== ENCOUNTER 2020-02-06 14:27 | Emergency (ER) | payer OTHER ==
[~2020-02-06] VITALS: Ht 144.8 cm; Wt 89.7 kg
[2020-02-06] MEDS ORDERED: KETOROLAC 30 MG/ML 1ML VIAL IV ONE (14:45)
[2020-02-06] MEDS ORDERED: FAMOTIDINE IV BAG 20 MG in IV 1 EA IV ONE (14:45)
[2020-02-06] MEDS ORDERED: NS 1,000 ML IV ONE (14:45)
--- NOTE | 2020-02-06 15:00 | REP ---
Clinical: Chest pain . Comparison: 12/07/2019 . Findings: The mediastinum and cardiac silhouette are stable and within normal limits for portable technique. The lung garcia are clear without acute consolidation, effusion, or pneumothorax. Skeletal structures are intact. Impression: No acute cardiopulmonary process appreciated. Electronically Signed by Michael Munoz MD 02/06/2020 02:51 P
[2020-02-06 15:11] LABS: BASO % 0.7 % (0.0-1.0); EOS # 0.1 10^3/uL (0.0-0.5); EOS % 2.5 % (0.0-3.0); HEMATOCRIT 39.3 % (36.0-47.0); HEMOGLOBIN 13.3 g/dl (12.0-15.5); LYMPH # 1.5 10^3/uL (1.5-5.0); LYMPH % 27.9 % (24.0-44.0); MEAN CORPUSCULAR HEMOGLOBIN 28.4 pg (27.0-33.0); MEAN CORPUSCULAR HGB CONC 33.8 g/dl (32.0-36.5); MONO # 0.3 10^3/uL (0.0-0.8); NEUTROPHILS # 3.5 10^3/uL (1.5-8.5); NEUTROPHILS % 62.7 % (36.0-66.0); PLATELET COUNT, AUTOMATED 258 10^3/uL (150-450); RED BLOOD COUNT 4.68 10^6/uL (4.00-5.40); WHITE BLOOD COUNT 5.5 10^3/uL (4.0-10.0)
[2020-02-06 15:22] LABS: INR 0.96; PROTHROMBIN TIME 12.5 SECONDS (11.8-14.0)
[2020-02-06 15:23] LABS: PARTIAL THROMBOPLASTIN TIME 28.6 SECONDS (25.0-38.4)
[2020-02-06] MEDS ORDERED: MORPHINE 4 MG/ML 1ML VIAL/SYRINGE (J2270) IV ONE (15:30)
[2020-02-06] MEDS ORDERED: OMEP-218 PO (15:38)
[2020-02-06 15:45] LABS: ALBUMIN 3.9 GM/DL (3.2-5.2); ALT/SGPT 46 U/L (12-78); BILIRUBIN,DIRECT 0.2 MG/DL (0.0-0.2); BILIRUBIN,TOTAL 0.7 MG/DL (0.2-1.0); BLOOD UREA NITROGEN 13 MG/DL (7-18); CARBON DIOXIDE LEVEL 26 MEQ/L (21-32); CHLORIDE LEVEL 107 MEQ/L (98-107); CREATININE FOR GFR 0.85 MG/DL (0.55-1.30); FREE T4 0.95 NG/DL (0.76-1.46); GLOMERULAR FILTRATION RATE > 60.0 (>60); GLUCOSE, FASTING 87 MG/DL (70-100); LIPASE 86 U/L (73-393); POTASSIUM SERUM 3.6 MEQ/L (3.5-5.1); SODIUM LEVEL 141 MEQ/L (136-145); TOTAL PROTEIN 7.2 GM/DL (6.4-8.2)
[2020-02-06] MEDS ORDERED: GI COCKTAIL 50ML BTL(HYOSCYAMINE/MAALOX/LIDOCAINE VISCOUS)(1:3:1) PO ONE (16:15)
[2020-02-06] MEDS ORDERED: HALOPERIDOL 5MG/ML VIAL (J1630 PER 1) IV ONE (17:20)
[2020-02-06 17:45] VITALS: BP 147/84
--- NOTE | 2020-02-06 18:01 | REPVR ---
PROCEDURE INFORMATION: Exam: CT Abdomen Without Contrast Exam date and time: 02/06/2020 5:40 PM Age: 39 years old Clinical indication: Abdominal pain; Epigastric; Additional info: Epigastric pain TECHNIQUE: Imaging protocol: Computed tomography images of the abdomen without contrast. Axial, coronal and sagittal reformatted images were created and reviewed. Radiation optimization: All CT scans at this facility use at least one of these dose optimization techniques: automated exposure control; mA and/or kV adjustment per patient size (includes targeted exams where dose is matched to clinical indication); or iterative reconstruction. COMPARISON: CT ABD PELVIS WITH CONTRAST 09/04/2019 7:45 PM FINDINGS: Lungs: Mild linear stranding and groundglass at the lung bases, likely due to atelectasis. Mediastinal space: Small hiatal hernia. Liver: Normal. No mass. Gallbladder and bile ducts: Status post cholecystectomy. No biliary ductal dilatation. Pancreas: Normal. No ductal dilation. Spleen: Normal. No splenomegaly. Adrenals: Normal. No mass. Kidneys and ureters: Normal. No hydronephrosis. Stomach and bowel: Moderate amount of retained stool in the visualized colon. No obstruction. No definite bowel wall thickening. No pneumatosis. Appendix: Status post appendectomy. Intraperitoneal space: Unremarkable. No free air. No significant fluid collection. Lymph nodes: Unremarkable. No enlarged lymph nodes. Vasculature: Unremarkable. No abdominal aortic aneurysm. Bones/joints: Unremarkable.No acute fracture. No dislocation. Soft tissues: Small, fat containing umbilical hernia. IMPRESSION: 1. Limited noncontrast examination without CT evidence of acute intra-abdominal pathology. 2. Additional findings, as above. Electronically signed by: Lucas Cardenas On 02/06/2020 18:01:18 PM
[2020-02-06] MEDS ORDERED: REGL5TAB2 PO (18:15)
--- NOTE | 2020-02-07 07:57 | ECGEPIP ---
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
== END 2020-02-06 18:27 | disposition home or self-care (01) ==
LOC: M ED 14:27
DX: K31.84 Gastroparesis (principal); Z88.2 Allergy status to sulfonamides; Z79.899 Other long term (current) drug therapy
CPT/HCPCS: 71045; 74150; 80048; 80076; 83690; 84439; 84443; 84484; 85025; 85610; 85730; 93005; 93041; 94760; 96365; 96375; 99285; J1630; J1885; J2270

== ENCOUNTER 2020-03-08 20:09 | Emergency (ER) | payer OTHER ==
[~2020-03-08 20:09] MED LIST changes: +OMEP-218 PO; +REGL5TAB2 PO
[2020-03-08] MEDS ORDERED: KETOROLAC TROMETHAMINE 10 MG TAB ONE (22:08)
== END 2020-03-08 23:27 | disposition home or self-care (01) ==
LOC: M ED 20:09
DX: S73.101A Unspecified sprain of right hip, initial encounter (principal); S30.0XXA Contusion of lower back and pelvis, initial encounter; V86.55XA Driver of 3- or 4- wheeled all-terrain vehicle (ATV) injured in nontraffic accident, initial encounter; Y92.89 Other specified places as the place of occurrence of the external cause; Z79.899 Other long term (current) drug therapy